=== PATIENT | female | born 1945 | race Caucasian/White ===

== ENCOUNTER 2017-06-15 22:42 | Inpatient (IN) | payer MEDICARE, OTHER ==
[~2017-06-15] VITALS: Ht 157.5 cm; Wt 96.1 kg
[~2017-06-15 22:42] MED LIST: ALBU8.5H8 INH; ATOR10TA87 PO; CARV12.5 PO; FURO-150 PO; HYDR1TAB PO; LISI10TA4 PO; MYC15CR TP; POTA10TA36 PO
[2017-06-15] MEDS ORDERED: ASPI-1265 PO (23:43)
[2017-06-15] MEDS ORDERED: HYDROcodone/acetaminophen 5mg/325mg tablet PO ONE (23:50)
[2017-06-16 00:32] LABS: ALANINE AMINOTRANSFERASE 17 U/L (12-78); ALBUMIN 3.1 G/DL (3.4-5.0); ALBUMIN/GLOBULIN RATIO 0.8 (1.1-1.5); ALKALINE PHOSPHATASE 80 IU/L (46-116); ANION GAP 9 (8-16); ASPARTATE AMINO TRANSFERASE 13 U/L (10-37); BILIRUBIN,TOTAL 0.3 MG/DL (0.1-1.0); BLOOD UREA NITROGEN 19 MG/DL (7-18); BUN/CREATININE RATIO 25.3 (6.6-38.0); CALCIUM 9.4 MG/DL (8.5-10.1); CHLORIDE 107 MMOL/L (99-107); CREATININE 0.75 MG/DL (0.40-0.90); GLUCOSE 93 MG/DL (70-104); SODIUM 142 MMOL/L (135-145); TOTAL CARBON DIOXIDE 26.3 MMOL/L (24-32); eGFR 76 ML/MIN
[2017-06-16 00:40] LABS: MAGNESIUM 2.3 MG/DL (1.5-2.4)
[2017-06-16 00:57] LABS: BASOPHILS % (AUTO) 0.5 % (0-1); EOSINOPHILS # (AUTO) 0.2 X10'3 (0-0.9); EOSINOPHILS % (AUTO) 2.1 % (0-6); HEMATOCRIT 40.8 % (35.0-45.0); HEMOGLOBIN 13.4 g/dl (12.0-16.0); LYMPHOCYTES # (AUTO) 1.9 X10'3 (1.1-4.8); LYMPHOCYTES % (AUTO) 24.2 % (21-51); MEAN CORPUSCULAR VOLUME 87.9 FL (78-98); MEAN PLATELET VOLUME 8.6 FL (7.4-10.4); MONOCYTES # (AUTO) 0.7 X10'3 (0-0.9); NEUTROPHILS # (AUTO) 5.2 X10'3 (1.8-7.7); NEUTROPHILS % (AUTO) 64.2 % (42-75); PLATELET COUNT 218 X10'3 (140-440); RED BLOOD COUNT 4.64 X10'6 (4.20-5.60); RED CELL DISTRIBUTION WIDTH 15.7 % (11.5-14.5)
[2017-06-16] MEDS ORDERED: clindamycin-Cleocin 900mg/D5W 50 ML IV ONE (01:00)
[2017-06-16] MEDS ORDERED: HYDROCODONE PO PRN (03:20)
[2017-06-16] MEDS ORDERED: ACETAMINOPHEN PO PRN (03:20)
[2017-06-16] MEDS: normal saline 1000ml 1,000 ML IV SCH ×2 (03:22→08:39)
[2017-06-16] MEDS ORDERED: diphenhydrAMINE 50 mg/ml inj IV PRN (03:25)
[2017-06-16] MEDS ORDERED: diphenhydrAMINE 25mg capsule PO PRN (03:25)
[2017-06-16] MEDS ORDERED: magnesium hydroxide 30ml (MOM) UD suspension PO PRN (03:25)
[2017-06-16] MEDS ORDERED: HYDROmorphone inj. 0.5 MG/0.5 ML DISP.SYRIN IV PRN ×2 (03:25)
[2017-06-16] MEDS ORDERED: ondansetron/PF 4mg/2ml inj IV PRN (03:25)
[2017-06-16] MEDS ORDERED: acetaminophen 650mg rectal suppository RC PRN (03:25)
[2017-06-16] MEDS ORDERED: acetaminophen 325mg tablet PO PRN ×2 (03:25)
[2017-06-16] MEDS ORDERED: metoclopramide 5 mg/ml inj IV PRN (03:25)
[2017-06-16] MEDS ORDERED: mag hydrox/Alum hydrox/simeth 30ml oral suspension PO PRN (03:25)
[2017-06-16] MEDS ORDERED: HYDROcodone/acetaminophen 10/325mg tab PO PRN (03:25)
[2017-06-16] MEDS ORDERED: HYDROcodone/acetaminophen 5mg/325mg tablet PO PRN (03:25)
[2017-06-16] MEDS ORDERED: albuterol 2.5 MG/3 ML nebule NEB PRN (03:40)
[2017-06-16 03:56] LABS: CLARITY,URINE CLEAR (Clear); COLOR,URINE YELLOW (Yellow); GLUCOSE, URINE NEGATIVE (Neg); KETONES,URINE NEGATIVE (Neg); LEUKOCYTE ESTERASE ,URINE NEGATIVE (Neg); NITRITES, URINE NEGATIVE (Neg); OCCULT BLOOD,URINE NEGATIVE (Neg); PH,URINE 5.5 (4.8-8.0); PROTEIN,URINE NEGATIVE (Neg); UROBILINOGEN,URINE 0.2 E.U/dL (0.2-1.0)
[2017-06-16 03:56] LABS: D-DIMER 1.81 MG/L FEU (0-0.50); INR 0.9 INR; PARTIAL THROMBOPLASTIN TIME 30 SECONDS (22-32); PROTHROMBIN TIME 9.8 SECONDS (9.0-12.0)
[2017-06-16 03:57] LABS: UA COLLECTION TYPE CLN CATCH MIDSTREAM
[2017-06-16 04:02] LABS: C-REACTIVE PROTEIN 1.36 MG/DL (0.0-0.5)
[2017-06-16 08:04] VITALS: BP 163/99
[2017-06-16] MEDS: clindamycin 600mg/D5W 50ml 50 ML IV SCH ×2 (08:38→16:48)
[2017-06-16] MEDS: lisinopril 10 MG tablet PO SCH (08:42)
[2017-06-16] MEDS: furosemide 10 MG/1 ML 10ml inj IV SCH (08:44)
[2017-06-16] MEDS: aspirin 81mg tab.chew PO SCH (08:44)
[2017-06-16] MEDS: atorvastatin 10mg tablet PO SCH (08:44)
[2017-06-16] MEDS: lactobacillus rhamnosus 10,000 MMU CELLS/CAPSULE PO SCH ×2 (08:44→20:04)
[2017-06-16] MEDS: carVEDilol 12.5mg tablet PO SCH ×2 (08:44→20:04)
[2017-06-16] MEDS: docusate sod 100mg capsule PO SCH ×2 (08:45→20:04)
[2017-06-16] MEDS: heparin, porcine 5000 units/ml vial SQ SCH ×2 (08:46→20:05)
[2017-06-16 11:11] VITALS: BP 124/88
[2017-06-16] MEDS ORDERED: HYDR-3964 PO (17:12)
[2017-06-16 19:00] VITALS: BP 126/69
[2017-06-16] MEDS ORDERED: HYDROmorphone 2mg tablet PO PRN (19:15)
[2017-06-16] MEDS: HYDROmorphone 2mg tablet PO PRN (20:02)
[2017-06-16] MEDS: nystatin 15 GM powder TP SCH (20:10)
[2017-06-16] MEDS ORDERED: temazepam 15mg capsule PO PRN (21:00)
[2017-06-17] MEDS: clindamycin 600mg/D5W 50ml 50 ML IV SCH ×3 (00:18→14:51)
[2017-06-17 00:47] VITALS: BP 117/69
[2017-06-17] MEDS: HYDROmorphone 2mg tablet PO PRN ×2 (04:34→21:35)
[2017-06-17 05:24] LABS: BASOPHILS % (AUTO) 0.6 % (0-1); EOSINOPHILS # (AUTO) 0.2 X10'3 (0-0.9); EOSINOPHILS % (AUTO) 3.3 % (0-6); HEMATOCRIT 37.9 % (35.0-45.0); HEMOGLOBIN 12.4 g/dl (12.0-16.0); LYMPHOCYTES # (AUTO) 1.5 X10'3 (1.1-4.8); MEAN CORPUSCULAR HGB CONC 32.8 % (33.0-36.5); MEAN CORPUSCULAR VOLUME 88.4 FL (78-98); MEAN PLATELET VOLUME 9.2 FL (7.4-10.4); MONOCYTES # (AUTO) 0.6 X10'3 (0-0.9); MONOCYTES % (AUTO) 10.3 % (2-12); NEUTROPHILS # (AUTO) 3.4 X10'3 (1.8-7.7); NEUTROPHILS % (AUTO) 59.8 % (42-75); PLATELET COUNT 201 X10'3 (140-440); RED BLOOD COUNT 4.28 X10'6 (4.20-5.60); RED CELL DISTRIBUTION WIDTH 15.4 % (11.5-14.5); WHITE BLOOD COUNT 5.6 X10'3 (4.5-11.0)
[2017-06-17 05:35] LABS: ALANINE AMINOTRANSFERASE 17 U/L (12-78); ALBUMIN 2.5 G/DL (3.4-5.0); ALBUMIN/GLOBULIN RATIO 0.7 (1.1-1.5); ALKALINE PHOSPHATASE 62 IU/L (46-116); ANION GAP 9 (8-16); ASPARTATE AMINO TRANSFERASE 14 U/L (10-37); BILIRUBIN,TOTAL 0.4 MG/DL (0.1-1.0); BLOOD UREA NITROGEN 19 MG/DL (7-18); BUN/CREATININE RATIO 23.8 (6.6-38.0); CALCIUM 8.9 MG/DL (8.5-10.1); CHLORIDE 108 MMOL/L (99-107); GLUCOSE 96 MG/DL (70-104); POTASSIUM 3.6 MMOL/L (3.5-5.1); SODIUM 145 MMOL/L (135-145); TOTAL CARBON DIOXIDE 28.5 MMOL/L (24-32); TOTAL PROTEIN 5.9 G/DL (6.4-8.2); eGFR 70 ML/MIN
[2017-06-17 06:02] LABS: HEMOGLOBIN A1C 5.6 % (4.5-6.2)
[2017-06-17 07:00] VITALS: BP 132/69
[2017-06-17] MEDS: furosemide 10 MG/1 ML 10ml inj IV SCH (08:05)
[2017-06-17] MEDS: carVEDilol 12.5mg tablet PO SCH ×2 (08:06→21:32)
[2017-06-17] MEDS: heparin, porcine 5000 units/ml vial SQ SCH ×2 (08:06→21:31)
[2017-06-17] MEDS: lisinopril 10 MG tablet PO SCH (08:06)
[2017-06-17] MEDS: docusate sod 100mg capsule PO SCH ×2 (08:06→21:32)
[2017-06-17] MEDS: aspirin 81mg tab.chew PO SCH (08:06)
[2017-06-17] MEDS: lactobacillus rhamnosus 10,000 MMU CELLS/CAPSULE PO SCH ×2 (08:06→21:32)
[2017-06-17] MEDS: atorvastatin 10mg tablet PO SCH (08:06)
[2017-06-17] MEDS: nystatin 15 GM powder TP SCH ×2 (08:18→20:00)
[2017-06-17 11:00] VITALS: BP 122/76
[2017-06-17] MEDS ORDERED: guaiFENesin/DM/phenylephrine syrup 120ml bottle PO PRN (12:25)
[2017-06-17] MEDS ORDERED: guaiFENesin 200 MG/10 ML oral syrup UD cup PO PRN (12:35)
[2017-06-17] MEDS: loratadine 10mg tablet PO SCH (14:51)
[2017-06-17 18:00] VITALS: BP 120/81
[2017-06-17 23:33] VITALS: BP 117/60
[2017-06-18] MEDS: clindamycin 600mg/D5W 50ml 50 ML IV SCH ×2 (00:53→09:30)
[2017-06-18] MEDS: HYDROmorphone 2mg tablet PO PRN (03:36)
[2017-06-18] MEDS: normal saline 1000ml 1,000 ML IV SCH (03:36)
[2017-06-18 05:12] LABS: BASOPHILS % (AUTO) 0.3 % (0-1); EOSINOPHILS # (AUTO) 0.3 X10'3 (0-0.9); EOSINOPHILS % (AUTO) 3.5 % (0-6); HEMATOCRIT 41.1 % (35.0-45.0); HEMOGLOBIN 13.7 g/dl (12.0-16.0); LYMPHOCYTES # (AUTO) 1.5 X10'3 (1.1-4.8); LYMPHOCYTES % (AUTO) 19.4 % (21-51); MEAN CORPUSCULAR HEMOGLOBIN 29.6 PG (27.0-31.0); MEAN CORPUSCULAR HGB CONC 33.3 % (33.0-36.5); MEAN CORPUSCULAR VOLUME 88.9 FL (78-98); MEAN PLATELET VOLUME 9.3 FL (7.4-10.4); MONOCYTES # (AUTO) 0.7 X10'3 (0-0.9); MONOCYTES % (AUTO) 8.6 % (2-12); NEUTROPHILS # (AUTO) 5.2 X10'3 (1.8-7.7); NEUTROPHILS % (AUTO) 68.2 % (42-75); PLATELET COUNT 225 X10'3 (140-440); RED BLOOD COUNT 4.62 X10'6 (4.20-5.60); RED CELL DISTRIBUTION WIDTH 15.7 % (11.5-14.5); WHITE BLOOD COUNT 7.7 X10'3 (4.5-11.0)
[2017-06-18 05:41] LABS: ALANINE AMINOTRANSFERASE 15 U/L (12-78); ALBUMIN 2.8 G/DL (3.4-5.0); ALBUMIN/GLOBULIN RATIO 0.7 (1.1-1.5); ALKALINE PHOSPHATASE 72 IU/L (46-116); ANION GAP 7 (8-16); ASPARTATE AMINO TRANSFERASE 19 U/L (10-37); BILIRUBIN,TOTAL 0.3 MG/DL (0.1-1.0); BLOOD UREA NITROGEN 27 MG/DL (7-18); BUN/CREATININE RATIO 29.3 (6.6-38.0); CALCIUM 9.6 MG/DL (8.5-10.1); CHLORIDE 107 MMOL/L (99-107); CREATININE 0.92 MG/DL (0.40-0.90); GLUCOSE 101 MG/DL (70-104); POTASSIUM 3.9 MMOL/L (3.5-5.1); SODIUM 144 MMOL/L (135-145); TOTAL CARBON DIOXIDE 30.2 MMOL/L (24-32); TOTAL PROTEIN 6.7 G/DL (6.4-8.2); eGFR 60 ML/MIN
[2017-06-18 07:19] VITALS: BP 129/81
[2017-06-18] MEDS: nystatin 15 GM powder TP SCH (08:00)
[2017-06-18] MEDS: furosemide 10 MG/1 ML 10ml inj IV SCH (09:30)
[2017-06-18] MEDS: carVEDilol 12.5mg tablet PO SCH (09:31)
[2017-06-18] MEDS: loratadine 10mg tablet PO SCH (09:31)
[2017-06-18] MEDS: docusate sod 100mg capsule PO SCH (09:31)
[2017-06-18] MEDS: aspirin 81mg tab.chew PO SCH (09:31)
[2017-06-18] MEDS: heparin, porcine 5000 units/ml vial SQ SCH (09:32)
[2017-06-18] MEDS: lisinopril 10 MG tablet PO SCH (09:32)
[2017-06-18] MEDS: lactobacillus rhamnosus 10,000 MMU CELLS/CAPSULE PO SCH (09:32)
[2017-06-18] MEDS: atorvastatin 10mg tablet PO SCH (09:32)
[2017-06-18] MEDS ORDERED: LORA10TA65 PO (10:49)
[2017-06-18] MEDS ORDERED: GUAI100L97 PO (10:49)
[2017-06-18] MEDS ORDERED: CLIN-5 PO (10:49)
[2017-06-18 11:00] VITALS: BP 135/82
== END 2017-06-18 12:30 | disposition home or self-care (01) | DRG 603 ==
LOC: ER 22:43 → ED HOLD 06-16 03:22 → SUR 3N 06-16 06:00 → CMPBEDREQ 06-16 06:06
PROVIDERS: ADMIT Family Medicine; ATTEND Internal Medicine
DX: L03.115 Cellulitis of right lower limb (principal); E66.01 Morbid (severe) obesity due to excess calories; I48.91 Unspecified atrial fibrillation; I50.9 Heart failure, unspecified; I11.0 Hypertensive heart disease with heart failure; L03.116 Cellulitis of left lower limb; I25.10 Atherosclerotic heart disease of native coronary artery without angina pectoris; I10 Essential (primary) hypertension; J45.909 Unspecified asthma, uncomplicated; I89.0 Lymphedema, not elsewhere classified; K21.9 Gastro-esophageal reflux disease without esophagitis; K31.9 Disease of stomach and duodenum, unspecified; L02.416 Cutaneous abscess of left lower limb; H26.9 Unspecified cataract; M19.90 Unspecified osteoarthritis, unspecified site; Z88.0 Allergy status to penicillin; Z88.2 Allergy status to sulfonamides; Z85.3 Personal history of malignant neoplasm of breast; I25.2 Old myocardial infarction; Z86.73 Personal history of transient ischemic attack (TIA), and cerebral infarction without residual deficits; Z68.38 Body mass index [BMI] 38.0-38.9, adult; Z87.11 Personal history of peptic ulcer disease; Z88.8 Allergy status to other drugs, medicaments and biological substances; Z91.041 Radiographic dye allergy status; Z90.49 Acquired absence of other specified parts of digestive tract
CPT/HCPCS: 36415; 73590; 80053; 81003; 83036; 83605; 83735; 83880; 84145; 85025; 85379; 85610; 85651; 85730; 86140; 87040; 87070; 99285; J1644; J1940; J3490; J7030; Q0163

== ENCOUNTER 2017-07-24 10:16 | Inpatient (IN) | payer MEDICARE ==
[~2017-07-24] VITALS: Ht 157.5 cm; Wt 118.0 kg
[~2017-07-24 10:16] MED LIST changes: +ASPI-1265 PO; +CLIN-5 PO; +GUAI100L97 PO; +HYDR-3964 PO; -HYDR1TAB PO; +LORA10TA65 PO; -MYC15CR TP
[2017-07-24 11:15] LABS: BASOPHILS # (AUTO) 0.1 X10'3 (0-0.2); BASOPHILS % (AUTO) 0.9 % (0-1); EOSINOPHILS # (AUTO) 0.1 X10'3 (0-0.9); EOSINOPHILS % (AUTO) 1.2 % (0-6); HEMATOCRIT 38.6 % (35.0-45.0); HEMOGLOBIN 13.2 g/dl (12.0-16.0); LYMPHOCYTES # (AUTO) 1.7 X10'3 (1.1-4.8); LYMPHOCYTES % (AUTO) 23.5 % (21-51); MEAN CORPUSCULAR HEMOGLOBIN 29.9 PG (27.0-31.0); MEAN CORPUSCULAR HGB CONC 34.2 % (33.0-36.5); MEAN CORPUSCULAR VOLUME 87.3 FL (78-98); MEAN PLATELET VOLUME 8.5 FL (7.4-10.4); MONOCYTES # (AUTO) 0.6 X10'3 (0-0.9); MONOCYTES % (AUTO) 8.1 % (2-12); NEUTROPHILS # (AUTO) 4.9 X10'3 (1.8-7.7); NEUTROPHILS % (AUTO) 66.3 % (42-75); PLATELET COUNT 255 X10'3 (140-440); RED BLOOD COUNT 4.43 X10'6 (4.20-5.60); RED CELL DISTRIBUTION WIDTH 15.9 % (11.5-14.5); WHITE BLOOD COUNT 7.4 X10'3 (4.5-11.0)
[2017-07-24 11:33] LABS: D-DIMER 2.05 MG/L FEU (0-0.50)
[2017-07-24 11:43] LABS: ALANINE AMINOTRANSFERASE 20 U/L (12-78); ALBUMIN 3.1 G/DL (3.4-5.0); ALBUMIN/GLOBULIN RATIO 0.7 (1.1-1.5); ALKALINE PHOSPHATASE 83 IU/L (46-116); ANION GAP 8 (8-16); ASPARTATE AMINO TRANSFERASE 14 U/L (10-37); BILIRUBIN,TOTAL 0.4 MG/DL (0.1-1.0); BLOOD UREA NITROGEN 15 MG/DL (7-18); CALCIUM 9.3 MG/DL (8.5-10.1); CHLORIDE 107 MMOL/L (99-107); CREATININE 0.79 MG/DL (0.40-0.90); GLUCOSE 94 MG/DL (70-104); POTASSIUM 3.7 MMOL/L (3.5-5.1); SODIUM 143 MMOL/L (135-145); TOTAL CARBON DIOXIDE 27.6 MMOL/L (24-32); TOTAL PROTEIN 7.3 G/DL (6.4-8.2); eGFR 71 ML/MIN
[2017-07-24] MEDS ORDERED: clindamycin-Cleocin 900mg/D5W 50 ML IV ONE (12:00)
[2017-07-24] MEDS ORDERED: magnesium/D5W IVPB 50 ML IV PRN (14:30)
[2017-07-24] MEDS ORDERED: potassium Cl 20 mEq SR tablet PO PRN ×2 (14:30)
[2017-07-24] MEDS ORDERED: magnesium 4gm in 100ml NS 100 ML IV PRN (14:30)
[2017-07-24] MEDS ORDERED: potassium Cl 40MEQ/NS 500ml 500 ML IV PRN ×2 (14:30)
[2017-07-24] MEDS ORDERED: ondansetron/PF 4mg/2ml inj IV PRN (14:30)
[2017-07-24] MEDS ORDERED: magnesium Cl slow-release 64mg tablet PO PRN (14:30)
[2017-07-24] MEDS ORDERED: acetaminophen 325mg tablet PO PRN (14:30)
[2017-07-24] MEDS ORDERED: mag hydrox/Alum hydrox/simeth 30ml oral suspension PO PRN (14:30)
[2017-07-24] MEDS ORDERED: HYDROcodone/acetaminophen 5mg/325mg tablet PO PRN (14:30)
[2017-07-24] MEDS ORDERED: magnesium hydroxide 30ml (MOM) UD suspension PO PRN (14:30)
[2017-07-24] MEDS: HYDROcodone/acetaminophen 10/325mg tab PO PRN (15:20)
[2017-07-24] MEDS: normal saline 1000ml 1,000 ML IV SCH (16:34)
[2017-07-24 16:59] VITALS: BP 152/98
[2017-07-24 19:20] VITALS: BP 126/67
[2017-07-24] MEDS: carVEDilol 12.5mg tablet PO SCH (19:32)
[2017-07-25] VITALS: BP 98/54
[2017-07-25] MEDS: acetaminophen 325mg tablet PO PRN (03:30)
[2017-07-25] MEDS: albuterol 2.5 MG/3 ML nebule NEB PRN ×3 (04:32→20:27)
[2017-07-25 06:12] LABS: BASOPHILS % (AUTO) 0.8 % (0-1); EOSINOPHILS # (AUTO) 0.1 X10'3 (0-0.9); EOSINOPHILS % (AUTO) 2.5 % (0-6); HEMATOCRIT 37.7 % (35.0-45.0); HEMOGLOBIN 12.6 g/dl (12.0-16.0); LYMPHOCYTES # (AUTO) 1.2 X10'3 (1.1-4.8); LYMPHOCYTES % (AUTO) 20.3 % (21-51); MEAN CORPUSCULAR HEMOGLOBIN 29.7 PG (27.0-31.0); MEAN CORPUSCULAR HGB CONC 33.5 % (33.0-36.5); MEAN CORPUSCULAR VOLUME 88.6 FL (78-98); MEAN PLATELET VOLUME 8.9 FL (7.4-10.4); MONOCYTES # (AUTO) 0.5 X10'3 (0-0.9); MONOCYTES % (AUTO) 8.9 % (2-12); NEUTROPHILS # (AUTO) 4.1 X10'3 (1.8-7.7); NEUTROPHILS % (AUTO) 67.5 % (42-75); PLATELET COUNT 221 X10'3 (140-440); RED BLOOD COUNT 4.26 X10'6 (4.20-5.60); RED CELL DISTRIBUTION WIDTH 15.6 % (11.5-14.5); WHITE BLOOD COUNT 6.1 X10'3 (4.5-11.0)
[2017-07-25 06:33] LABS: ALBUMIN 2.7 G/DL (3.4-5.0); ANION GAP 8 (8-16); BLOOD UREA NITROGEN 18 MG/DL (7-18); BUN/CREATININE RATIO 20.5 (6.6-38.0); CALCIUM 9.1 MG/DL (8.5-10.1); CHLORIDE 108 MMOL/L (99-107); CREATININE 0.88 MG/DL (0.40-0.90); GLUCOSE 92 MG/DL (70-104); MAGNESIUM 2.2 MG/DL (1.5-2.4); POTASSIUM 4.1 MMOL/L (3.5-5.1); SODIUM 144 MMOL/L (135-145); TOTAL CARBON DIOXIDE 28.1 MMOL/L (24-32); eGFR 63 ML/MIN
[2017-07-25 07:00] VITALS: BP 120/82
[2017-07-25] MEDS: K and/or MAG REPLACEMENT MC SCH (07:44)
[2017-07-25] MEDS: lisinopril 10 MG tablet PO SCH (07:53)
[2017-07-25] MEDS: atorvastatin 10mg tablet PO SCH (07:53)
[2017-07-25] MEDS: aspirin 81mg tab.chew PO SCH (07:53)
[2017-07-25] MEDS: carVEDilol 12.5mg tablet PO SCH ×2 (07:53→19:11)
[2017-07-25] MEDS: enoxaparin 40mg/0.4ml syringe SUBCUT SCH (07:54)
[2017-07-25 12:15] VITALS: BP 108/77
[2017-07-25] MEDS: cefepime 1GM/NS ADD-VANTAGE 100 ML IV SCH ×2 (13:56→19:11)
[2017-07-25 19:00] VITALS: BP 105/78
[2017-07-25] MEDS: lactobacillus rhamnosus 10,000 MMU CELLS/CAPSULE PO SCH (19:11)
[2017-07-25] MEDS: HYDROcodone/acetaminophen 10/325mg tab PO PRN (20:16)
[2017-07-26] VITALS: BP 105/59
[2017-07-26] MEDS: temazepam 15mg capsule PO PRN (02:19)
[2017-07-26] MEDS ORDERED: VANCOMYCIN LEVEL IV ONE (03:30)
[2017-07-26 03:40] LABS: BASOPHILS % (AUTO) 0.5 % (0-1); EOSINOPHILS # (AUTO) 0.2 X10'3 (0-0.9); HEMATOCRIT 35.5 % (35.0-45.0); HEMOGLOBIN 11.9 g/dl (12.0-16.0); LYMPHOCYTES # (AUTO) 1.4 X10'3 (1.1-4.8); LYMPHOCYTES % (AUTO) 22.3 % (21-51); MEAN CORPUSCULAR HEMOGLOBIN 29.4 PG (27.0-31.0); MEAN CORPUSCULAR HGB CONC 33.4 % (33.0-36.5); MEAN CORPUSCULAR VOLUME 87.9 FL (78-98); MEAN PLATELET VOLUME 8.4 FL (7.4-10.4); MONOCYTES # (AUTO) 0.6 X10'3 (0-0.9); MONOCYTES % (AUTO) 9.2 % (2-12); NEUTROPHILS # (AUTO) 4.1 X10'3 (1.8-7.7); PLATELET COUNT 201 X10'3 (140-440); RED BLOOD COUNT 4.04 X10'6 (4.20-5.60); RED CELL DISTRIBUTION WIDTH 16.2 % (11.5-14.5); WHITE BLOOD COUNT 6.3 X10'3 (4.5-11.0)
[2017-07-26 04:12] LABS: ALBUMIN 2.3 G/DL (3.4-5.0); ANION GAP 7 (8-16); BLOOD UREA NITROGEN 21 MG/DL (7-18); BUN/CREATININE RATIO 23.3 (6.6-38.0); CALCIUM 8.7 MG/DL (8.5-10.1); CHLORIDE 107 MMOL/L (99-107); GLUCOSE 102 MG/DL (70-104); SODIUM 142 MMOL/L (135-145); TOTAL CARBON DIOXIDE 27.6 MMOL/L (24-32); eGFR 61 ML/MIN
[2017-07-26 04:19] LABS: VANCOMYCIN,TROUGH 20.8 UG/ML (6.0-14.0)
[2017-07-26] MEDS: albuterol 2.5 MG/3 ML nebule NEB PRN (06:42)
[2017-07-26] MEDS: cefepime 1GM/NS ADD-VANTAGE 100 ML IV SCH ×2 (07:26→21:04)
[2017-07-26] MEDS: lisinopril 10 MG tablet PO SCH (07:27)
[2017-07-26] MEDS: atorvastatin 10mg tablet PO SCH (07:27)
[2017-07-26] MEDS: aspirin 81mg tab.chew PO SCH (07:27)
[2017-07-26] MEDS: lactobacillus rhamnosus 10,000 MMU CELLS/CAPSULE PO SCH ×2 (07:27→20:48)
[2017-07-26] MEDS: carVEDilol 12.5mg tablet PO SCH ×2 (07:27→20:48)
[2017-07-26] MEDS: enoxaparin 40mg/0.4ml syringe SUBCUT SCH (07:28)
[2017-07-26] MEDS: K and/or MAG REPLACEMENT MC SCH (07:34)
[2017-07-26 07:46] VITALS: BP 104/63
[2017-07-26] MEDS: normal saline 1000ml 1,000 ML IV SCH (14:27)
[2017-07-26 19:00] VITALS: BP 127/70
[2017-07-26] MEDS: HYDROcodone/acetaminophen 10/325mg tab PO PRN (20:51)
[2017-07-26 23:30] VITALS: BP 91/54
[2017-07-27] MEDS: temazepam 15mg capsule PO PRN (01:25)
[2017-07-27] MEDS: acetaminophen 325mg tablet PO PRN (03:26)
[2017-07-27 05:01] LABS: BASOPHILS % (AUTO) 0.3 % (0-1); EOSINOPHILS # (AUTO) 0.2 X10'3 (0-0.9); HEMATOCRIT 37.6 % (35.0-45.0); HEMOGLOBIN 12.5 g/dl (12.0-16.0); LYMPHOCYTES # (AUTO) 1.5 X10'3 (1.1-4.8); LYMPHOCYTES % (AUTO) 21.3 % (21-51); MEAN CORPUSCULAR HEMOGLOBIN 29.4 PG (27.0-31.0); MEAN CORPUSCULAR HGB CONC 33.4 % (33.0-36.5); MEAN CORPUSCULAR VOLUME 88.2 FL (78-98); MONOCYTES # (AUTO) 0.6 X10'3 (0-0.9); MONOCYTES % (AUTO) 8.9 % (2-12); NEUTROPHILS # (AUTO) 4.7 X10'3 (1.8-7.7); NEUTROPHILS % (AUTO) 66.5 % (42-75); PLATELET COUNT 205 X10'3 (140-440); RED BLOOD COUNT 4.26 X10'6 (4.20-5.60); RED CELL DISTRIBUTION WIDTH 16.2 % (11.5-14.5)
[2017-07-27 05:17] LABS: ALBUMIN 2.6 G/DL (3.4-5.0); ANION GAP 5 (8-16); BLOOD UREA NITROGEN 18 MG/DL (7-18); BUN/CREATININE RATIO 21.2 (6.6-38.0); CHLORIDE 108 MMOL/L (99-107); CREATININE 0.85 MG/DL (0.40-0.90); GLUCOSE 108 MG/DL (70-104); MAGNESIUM 2.1 MG/DL (1.5-2.4); POTASSIUM 4.1 MMOL/L (3.5-5.1); SODIUM 142 MMOL/L (135-145); TOTAL CARBON DIOXIDE 29.3 MMOL/L (24-32); eGFR 65 ML/MIN
[2017-07-27 07:33] VITALS: BP 118/77
[2017-07-27] MEDS: K and/or MAG REPLACEMENT MC SCH (08:00)
[2017-07-27] MEDS: lisinopril 10 MG tablet PO SCH (08:10)
[2017-07-27] MEDS: atorvastatin 10mg tablet PO SCH (08:10)
[2017-07-27] MEDS: lactobacillus rhamnosus 10,000 MMU CELLS/CAPSULE PO SCH (08:10)
[2017-07-27] MEDS: cefepime 1GM/NS ADD-VANTAGE 100 ML IV SCH (08:10)
[2017-07-27] MEDS: carVEDilol 12.5mg tablet PO SCH (08:10)
[2017-07-27] MEDS: aspirin 81mg tab.chew PO SCH (08:10)
[2017-07-27] MEDS: enoxaparin 40mg/0.4ml syringe SUBCUT SCH (08:11)
[2017-07-27] MEDS: normal saline 1000ml 1,000 ML IV SCH (08:11)
[2017-07-27 11:52] VITALS: BP 117/75
[2017-07-27] MEDS ORDERED: LACT1CAP26 PO (15:04)
[2017-07-27] MEDS ORDERED: CEFD300C3 PO (15:04)
== END 2017-07-27 19:10 | disposition home health service (06) | DRG 603 ==
LOC: ER 10:17 → ED HOLD 14:27 → EDBEDREQ 15:22 → SUR 3N 16:15
PROVIDERS: ADMIT Internal Medicine; ATTEND Family Medicine
DX: L03.116 Cellulitis of left lower limb (principal); Z68.42 Body mass index [BMI] 45.0-49.9, adult; E66.01 Morbid (severe) obesity due to excess calories; I50.9 Heart failure, unspecified; I11.0 Hypertensive heart disease with heart failure; I25.10 Atherosclerotic heart disease of native coronary artery without angina pectoris; J44.9 Chronic obstructive pulmonary disease, unspecified; E78.5 Hyperlipidemia, unspecified; I48.91 Unspecified atrial fibrillation; M19.90 Unspecified osteoarthritis, unspecified site; K21.9 Gastro-esophageal reflux disease without esophagitis; Z90.49 Acquired absence of other specified parts of digestive tract; I25.2 Old myocardial infarction; Z88.1 Allergy status to other antibiotic agents; Z91.041 Radiographic dye allergy status; Z88.0 Allergy status to penicillin; Z88.2 Allergy status to sulfonamides; Z91.018 Allergy to other foods; Z79.899 Other long term (current) drug therapy; Z79.82 Long term (current) use of aspirin; Z85.3 Personal history of malignant neoplasm of breast; Z87.11 Personal history of peptic ulcer disease; Z86.718 Personal history of other venous thrombosis and embolism; Z86.73 Personal history of transient ischemic attack (TIA), and cerebral infarction without residual deficits
CPT/HCPCS: 36415; 71045; 80048; 80053; 80202; 83605; 83735; 83880; 84145; 85025; 85379; 87040; 87070; 93005; 93970; 94640; 94760; 96365; 99285; A6258; J0692; J1650; J3370; J3490; J7030

== ENCOUNTER 2017-09-07 12:08 | Emergency (ER) | payer MEDICARE ==
[~2017-09-07] VITALS: Ht 157.5 cm; Wt 99.6 kg
[~2017-09-07 12:08] MED LIST changes: -CLIN-5 PO; +LACT1CAP26 PO
[2017-09-07 13:11] LABS: BASOPHILS % (AUTO) 0.6 % (0-1); EOSINOPHILS # (AUTO) 0.2 X10'3 (0-0.9); EOSINOPHILS % (AUTO) 2.5 % (0-6); HEMATOCRIT 41.3 % (35.0-45.0); HEMOGLOBIN 13.8 g/dl (12.0-16.0); LYMPHOCYTES # (AUTO) 1.4 X10'3 (1.1-4.8); LYMPHOCYTES % (AUTO) 19.1 % (21-51); MEAN CORPUSCULAR HEMOGLOBIN 29.5 PG (27.0-31.0); MEAN CORPUSCULAR HGB CONC 33.3 % (33.0-36.5); MEAN CORPUSCULAR VOLUME 88.5 FL (78-98); MEAN PLATELET VOLUME 8.8 FL (7.4-10.4); MONOCYTES # (AUTO) 0.6 X10'3 (0-0.9); MONOCYTES % (AUTO) 8.6 % (2-12); NEUTROPHILS # (AUTO) 5.2 X10'3 (1.8-7.7); NEUTROPHILS % (AUTO) 69.2 % (42-75); PLATELET COUNT 223 X10'3 (140-440); RED BLOOD COUNT 4.67 X10'6 (4.20-5.60); RED CELL DISTRIBUTION WIDTH 15.6 % (11.5-14.5); WHITE BLOOD COUNT 7.5 X10'3 (4.5-11.0)
[2017-09-07 13:21] LABS: INR 0.9 INR; PARTIAL THROMBOPLASTIN TIME 30 SECONDS (22-32); PROTHROMBIN TIME 9.7 SECONDS (9.0-12.0)
[2017-09-07 13:27] LABS: ALANINE AMINOTRANSFERASE 18 U/L (12-78); ALBUMIN/GLOBULIN RATIO 0.7 (1.1-1.5); ALKALINE PHOSPHATASE 78 IU/L (46-116); ANION GAP 7 (8-16); ASPARTATE AMINO TRANSFERASE 13 U/L (10-37); BILIRUBIN,TOTAL 0.4 MG/DL (0.1-1.0); BLOOD UREA NITROGEN 14 MG/DL (7-18); BUN/CREATININE RATIO 17.1 (6.6-38.0); CALCIUM 9.4 MG/DL (8.5-10.1); CHLORIDE 107 MMOL/L (99-107); CREATININE 0.82 MG/DL (0.40-0.90); GLUCOSE 89 MG/DL (70-104); POTASSIUM 4.1 MMOL/L (3.5-5.1); SODIUM 143 MMOL/L (135-145); TOTAL CARBON DIOXIDE 28.8 MMOL/L (24-32); TOTAL PROTEIN 7.6 G/DL (6.4-8.2); eGFR 68 ML/MIN
[2017-09-07 13:33] LABS: MAGNESIUM 2.2 MG/DL (1.5-2.4)
[2017-09-07] MEDS ORDERED: furosemide 10 MG/1 ML 10ml inj IV ONE (14:20)
[2017-09-07] MEDS ORDERED: CLIN150C8 PO (14:23)
[2017-09-07 14:31] VITALS: BP 140/80
== END 2017-09-07 14:44 | disposition home or self-care (01) ==
LOC: ER 12:09
DX: L03.116 Cellulitis of left lower limb (principal); L03.115 Cellulitis of right lower limb; I48.91 Unspecified atrial fibrillation; R06.02 Shortness of breath; I11.0 Hypertensive heart disease with heart failure; I50.9 Heart failure, unspecified; J45.909 Unspecified asthma, uncomplicated; K21.9 Gastro-esophageal reflux disease without esophagitis; M19.90 Unspecified osteoarthritis, unspecified site; Z85.3 Personal history of malignant neoplasm of breast; Z86.718 Personal history of other venous thrombosis and embolism; Z98.890 Other specified postprocedural states; Z90.89 Acquired absence of other organs; Z86.73 Personal history of transient ischemic attack (TIA), and cerebral infarction without residual deficits; Z88.2 Allergy status to sulfonamides; Z88.0 Allergy status to penicillin; Z88.5 Allergy status to narcotic agent; Z91.018 Allergy to other foods; Z79.82 Long term (current) use of aspirin; Z79.899 Other long term (current) drug therapy
CPT/HCPCS: 36415; 71045; 80053; 83605; 83735; 83880; 84484; 85025; 85610; 85730; 87040; 93005; 96374; 99285; J1940

== ENCOUNTER 2017-09-12 10:35 | Inpatient (IN) | payer MEDICARE, OTHER ==
[~2017-09-12] VITALS: Ht 157.5 cm; Wt 120.9 kg
[~2017-09-12 10:35] MED LIST changes: +CLIN150C8 PO
[2017-09-12] MEDS ORDERED: gentamicin inj 400 MG in normal saline 100ml IV soln 100 ML IV STA (11:14)
[2017-09-12] MEDS ORDERED: vancomycin/NS 1 GM ADD-VANTAGE 250 ML IV ONE (11:15)
[2017-09-12 11:31] LABS: BASOPHILS % (AUTO) 0.4 % (0-1); EOSINOPHILS # (AUTO) 0.2 X10'3 (0-0.9); EOSINOPHILS % (AUTO) 2.8 % (0-6); HEMATOCRIT 42.6 % (35.0-45.0); HEMOGLOBIN 14.1 g/dl (12.0-16.0); LYMPHOCYTES # (AUTO) 1.5 X10'3 (1.1-4.8); LYMPHOCYTES % (AUTO) 19.3 % (21-51); MEAN CORPUSCULAR HEMOGLOBIN 29.3 PG (27.0-31.0); MEAN CORPUSCULAR VOLUME 88.7 FL (78-98); MEAN PLATELET VOLUME 8.8 FL (7.4-10.4); MONOCYTES # (AUTO) 0.5 X10'3 (0-0.9); MONOCYTES % (AUTO) 6.8 % (2-12); NEUTROPHILS # (AUTO) 5.7 X10'3 (1.8-7.7); NEUTROPHILS % (AUTO) 70.7 % (42-75); PLATELET COUNT 227 X10'3 (140-440); RED CELL DISTRIBUTION WIDTH 15.9 % (11.5-14.5)
[2017-09-12 11:41] LABS: PARTIAL THROMBOPLASTIN TIME 30 SECONDS (22-32)
[2017-09-12 11:46] LABS: ALANINE AMINOTRANSFERASE 17 U/L (12-78); ALBUMIN 2.9 G/DL (3.4-5.0); ALBUMIN/GLOBULIN RATIO 0.7 (1.1-1.5); ALKALINE PHOSPHATASE 79 IU/L (46-116); ANION GAP 5 (8-16); ASPARTATE AMINO TRANSFERASE 14 U/L (10-37); BILIRUBIN,TOTAL 0.4 MG/DL (0.1-1.0); BLOOD UREA NITROGEN 10 MG/DL (7-18); BUN/CREATININE RATIO 12.5 (6.6-38.0); CHLORIDE 108 MMOL/L (99-107); GLUCOSE 94 MG/DL (70-104); MAGNESIUM 2.2 MG/DL (1.5-2.4); SODIUM 142 MMOL/L (135-145); TOTAL CARBON DIOXIDE 29.3 MMOL/L (24-32); eGFR 70 ML/MIN
[2017-09-12] MEDS ORDERED: magnesium Cl slow-release 64mg tablet PO PRN (12:15)
[2017-09-12] MEDS ORDERED: magnesium 1gm/100ml D5W IVPB 100 ML IV PRN (12:15)
[2017-09-12] MEDS ORDERED: mag hydrox/Alum hydrox/simeth 30ml oral suspension PO PRN (12:15)
[2017-09-12] MEDS ORDERED: potassium Cl 20 mEq SR tablet PO PRN (12:15)
[2017-09-12] MEDS ORDERED: potassium Cl 40MEQ/NS 500ml 500 ML IV PRN ×2 (12:15)
[2017-09-12] MEDS ORDERED: HYDROcodone/acetaminophen 5mg/325mg tablet PO PRN ×2 (12:15→17:35)
[2017-09-12] MEDS ORDERED: magnesium 4gm in 100ml NS 100 ML IV PRN (12:15)
[2017-09-12] MEDS ORDERED: ondansetron/PF 4mg/2ml inj IV PRN (12:15)
[2017-09-12] MEDS ORDERED: enoxaparin 60mg/0.6ml syringe SUBCUT ONE (12:37)
[2017-09-12] MEDS ORDERED: enoxaparin 100mg/ml syringe SUBCUT ONE (12:45)
[2017-09-12 13:08] LABS: GLUCOSE, URINE Negative (Neg); KETONES,URINE Negative (Neg); LEUKOCYTE ESTERASE ,URINE Moderate (Neg); NITRITES, URINE Negative (Neg); OCCULT BLOOD,URINE Negative (Neg); PH,URINE 6.5 (4.8-8.0); PROTEIN,URINE Negative (Neg)
[2017-09-12 13:09] LABS: CLARITY,URINE SLIGHTLY CLOUDY (Clear); COLOR,URINE STRAW (Yellow); UA COLLECTION TYPE URINAL
[2017-09-12 13:14] LABS: BACTERIA,URINE 2+ /HPF (Neg); MUCUS STRANDS NONE SEEN /LPF (Neg); RBC,URINE NONE SEEN /HPF (0-2); SQUAMOUS EPITHELIAL CELL,UR MODERATE /LPF (FEW); WBC CLUMPS,URINE MODERATE /HPF (NEGATIVE); WBC,URINE 30-50 /HPF (0-4)
[2017-09-12] MEDS ORDERED: diphenhydrAMINE 50 mg/ml inj IV ONE (14:35)
[2017-09-12 17:00] VITALS: BP 134/76
[2017-09-12] MEDS: HYDROcodone/acetaminophen 10/325mg tab PO PRN (17:15)
[2017-09-12] MEDS: ceFAZolin 1GM/D5W- ADD-VANTAGE 50 ML IV SCH (17:15)
[2017-09-12] MEDS ORDERED: non-formulary drug (Albuterol Sulfate (Proair Hfa) 2 PUFFS) INH SCH (17:35)
[2017-09-12] MEDS ORDERED: albuterol 2.5 MG/3 ML nebule NEB PRN (17:45)
[2017-09-12] MEDS: lactobacillus rhamnosus 10,000 MMU CELLS/CAPSULE PO SCH (20:41)
[2017-09-12] MEDS: carVEDilol 12.5mg tablet PO SCH (20:41)
[2017-09-12] MEDS ORDERED: diphenhydrAMINE 25mg capsule PO PRN (20:55)
[2017-09-12 23:00] VITALS: BP 107/63
[2017-09-13] MEDS: ceFAZolin 1GM/D5W- ADD-VANTAGE 50 ML IV SCH ×2 (00:31→08:49)
[2017-09-13 05:00] VITALS: BP 109/65
[2017-09-13 06:20] LABS: BASOPHILS % (AUTO) 0.6 % (0-1); EOSINOPHILS # (AUTO) 0.2 X10'3 (0-0.9); EOSINOPHILS % (AUTO) 3.7 % (0-6); HEMATOCRIT 36.9 % (35.0-45.0); HEMOGLOBIN 12.2 g/dl (12.0-16.0); LYMPHOCYTES # (AUTO) 1.2 X10'3 (1.1-4.8); LYMPHOCYTES % (AUTO) 21.3 % (21-51); MEAN CORPUSCULAR HEMOGLOBIN 29.4 PG (27.0-31.0); MEAN CORPUSCULAR HGB CONC 33.2 % (33.0-36.5); MEAN CORPUSCULAR VOLUME 88.6 FL (78-98); MEAN PLATELET VOLUME 8.9 FL (7.4-10.4); MONOCYTES # (AUTO) 0.6 X10'3 (0-0.9); MONOCYTES % (AUTO) 9.7 % (2-12); NEUTROPHILS # (AUTO) 3.7 X10'3 (1.8-7.7); NEUTROPHILS % (AUTO) 64.7 % (42-75); PLATELET COUNT 195 X10'3 (140-440); RED BLOOD COUNT 4.17 X10'6 (4.20-5.60); RED CELL DISTRIBUTION WIDTH 15.9 % (11.5-14.5); WHITE BLOOD COUNT 5.8 X10'3 (4.5-11.0)
[2017-09-13 06:35] LABS: ALBUMIN 2.4 G/DL (3.4-5.0); ANION GAP 7 (8-16); BLOOD UREA NITROGEN 15 MG/DL (7-18); BUN/CREATININE RATIO 17.9 (6.6-38.0); CALCIUM 8.5 MG/DL (8.5-10.1); CHLORIDE 109 MMOL/L (99-107); CREATININE 0.84 MG/DL (0.40-0.90); GLUCOSE 89 MG/DL (70-104); MAGNESIUM 2.1 MG/DL (1.5-2.4); POTASSIUM 4.1 MMOL/L (3.5-5.1); SODIUM 142 MMOL/L (135-145); TOTAL CARBON DIOXIDE 26.4 MMOL/L (24-32); eGFR 66 ML/MIN
[2017-09-13] MEDS ORDERED: potassium chloride 10mEq ER tablet PO SCH (08:00)
[2017-09-13] MEDS ORDERED: lisinopril 10 MG tablet PO SCH (08:00)
[2017-09-13] MEDS ORDERED: POTASSIUM CHLORIDE 10 MEQ PO SCH (08:00)
[2017-09-13] MEDS ORDERED: furosemide 40mg tablet PO SCH (08:00)
[2017-09-13] MEDS: K and/or MAG REPLACEMENT MC SCH (08:00)
[2017-09-13] MEDS: lactobacillus rhamnosus 10,000 MMU CELLS/CAPSULE PO SCH ×2 (08:48→21:17)
[2017-09-13] MEDS: aspirin 81mg tab.chew PO SCH (08:48)
[2017-09-13] MEDS: carVEDilol 12.5mg tablet PO SCH ×2 (08:49→21:16)
[2017-09-13] MEDS: atorvastatin 10mg tablet PO SCH (08:49)
[2017-09-13 11:10] VITALS: BP 114/60
[2017-09-13] MEDS ORDERED: heparin 10,000 units/1 ML INJ IV PRN (11:15)
[2017-09-13] MEDS ORDERED: heparin 10,000 units/1 ML INJ IV ONE (11:15)
[2017-09-13 11:55] LABS: PARTIAL THROMBOPLASTIN TIME 31 SECONDS (22-32)
[2017-09-13] MEDS ORDERED: doxycycline inj 100 MG in normal saline 100ml IV soln 100 ML IV SCH ×2 (12:50→17:33)
[2017-09-13 18:00] VITALS: BP 117/72
[2017-09-13] MEDS: furosemide 20 MG/2 ML vial IV SCH ×2 (18:02→23:38)
[2017-09-13] MEDS: acetaminophen 325mg tablet PO PRN (18:04)
[2017-09-13] MEDS: doxycycline inj 100 MG in normal saline 100ml IV soln 100 ML IV SCH (18:04)
[2017-09-13 22:00] VITALS: BP 107/61
[2017-09-14] MEDS: acetaminophen 325mg tablet PO PRN ×2 (00:42→14:35)
[2017-09-14] MEDS: doxycycline inj 100 MG in normal saline 100ml IV soln 100 ML IV SCH (04:18)
[2017-09-14 06:02] LABS: ALBUMIN 2.5 G/DL (3.4-5.0); ANION GAP 7 (8-16); BLOOD UREA NITROGEN 15 MG/DL (7-18); BUN/CREATININE RATIO 16.3 (6.6-38.0); CALCIUM 8.7 MG/DL (8.5-10.1); CHLORIDE 105 MMOL/L (99-107); CREATININE 0.92 MG/DL (0.40-0.90); GLUCOSE 120 MG/DL (70-104); MAGNESIUM 1.8 MG/DL (1.5-2.4); POTASSIUM 3.2 MMOL/L (3.5-5.1); SODIUM 141 MMOL/L (135-145); TOTAL CARBON DIOXIDE 28.6 MMOL/L (24-32); eGFR 60 ML/MIN
[2017-09-14 06:03] LABS: BASOPHILS % (AUTO) 0.3 % (0-1); EOSINOPHILS # (AUTO) 0.4 X10'3 (0-0.9); EOSINOPHILS % (AUTO) 6.2 % (0-6); HEMATOCRIT 37.7 % (35.0-45.0); HEMOGLOBIN 12.5 g/dl (12.0-16.0); LYMPHOCYTES # (AUTO) 1.6 X10'3 (1.1-4.8); LYMPHOCYTES % (AUTO) 22.8 % (21-51); MEAN CORPUSCULAR HEMOGLOBIN 29.3 PG (27.0-31.0); MEAN CORPUSCULAR HGB CONC 33.1 % (33.0-36.5); MEAN CORPUSCULAR VOLUME 88.4 FL (78-98); MEAN PLATELET VOLUME 9.4 FL (7.4-10.4); MONOCYTES # (AUTO) 0.6 X10'3 (0-0.9); MONOCYTES % (AUTO) 7.9 % (2-12); NEUTROPHILS # (AUTO) 4.4 X10'3 (1.8-7.7); NEUTROPHILS % (AUTO) 62.8 % (42-75); PLATELET COUNT 204 X10'3 (140-440); RED BLOOD COUNT 4.26 X10'6 (4.20-5.60); RED CELL DISTRIBUTION WIDTH 15.6 % (11.5-14.5)
[2017-09-14 08:00] VITALS: BP 134/70
[2017-09-14] MEDS: aspirin 81mg tab.chew PO SCH ×2 (08:00→08:01)
[2017-09-14] MEDS: K and/or MAG REPLACEMENT MC SCH (08:00)
[2017-09-14] MEDS: lactobacillus rhamnosus 10,000 MMU CELLS/CAPSULE PO SCH ×2 (08:01→23:01)
[2017-09-14] MEDS: atorvastatin 10mg tablet PO SCH (08:02)
[2017-09-14] MEDS: potassium Cl 20 mEq SR tablet PO PRN ×3 (08:02→15:37)
[2017-09-14] MEDS: pantoprazole 40mg Tablet.DR PO SCH (08:02)
[2017-09-14] MEDS: carVEDilol 12.5mg tablet PO SCH (08:03)
[2017-09-14] MEDS: furosemide 20 MG/2 ML vial IV SCH ×3 (08:03→23:01)
[2017-09-14 11:32] VITALS: BP 92/53
[2017-09-14] MEDS: dabigatran 150mg capsule PO SCH ×2 (15:36→23:01)
[2017-09-14] MEDS: DOXYCYCLINE 100MG CAPSULE PO SCH (16:42)
[2017-09-14 18:00] VITALS: BP 93/61
[2017-09-14] MEDS: potassium Cl 20 mEq SR tablet PO SCH (19:53)
[2017-09-14] MEDS: carVEDilol 3.125mg tablet PO SCH (19:58)
[2017-09-14] MEDS: HYDROcodone/acetaminophen 10/325mg tab PO PRN (19:59)
[2017-09-14 20:00] VITALS: BP 126/86
[2017-09-14 22:00] VITALS: BP 113/66
[2017-09-15] MEDS: acetaminophen 325mg tablet PO PRN ×2 (01:39→12:56)
[2017-09-15 05:37] LABS: BASOPHILS % (AUTO) 0.4 % (0-1); EOSINOPHILS # (AUTO) 0.4 X10'3 (0-0.9); HEMATOCRIT 38.1 % (35.0-45.0); HEMOGLOBIN 12.9 g/dl (12.0-16.0); LYMPHOCYTES # (AUTO) 1.6 X10'3 (1.1-4.8); LYMPHOCYTES % (AUTO) 24.1 % (21-51); MEAN CORPUSCULAR HEMOGLOBIN 29.6 PG (27.0-31.0); MEAN CORPUSCULAR HGB CONC 33.9 % (33.0-36.5); MEAN CORPUSCULAR VOLUME 87.5 FL (78-98); MEAN PLATELET VOLUME 8.9 FL (7.4-10.4); MONOCYTES # (AUTO) 0.7 X10'3 (0-0.9); MONOCYTES % (AUTO) 10.7 % (2-12); NEUTROPHILS # (AUTO) 3.9 X10'3 (1.8-7.7); NEUTROPHILS % (AUTO) 58.8 % (42-75); PLATELET COUNT 216 X10'3 (140-440); RED BLOOD COUNT 4.35 X10'6 (4.20-5.60); RED CELL DISTRIBUTION WIDTH 15.5 % (11.5-14.5); WHITE BLOOD COUNT 6.6 X10'3 (4.5-11.0)
[2017-09-15 06:00] VITALS: BP 149/75
[2017-09-15 06:06] LABS: ALBUMIN 2.6 G/DL (3.4-5.0); ANION GAP 6 (8-16); BLOOD UREA NITROGEN 18 MG/DL (7-18); BUN/CREATININE RATIO 20.2 (6.6-38.0); CALCIUM 9.6 MG/DL (8.5-10.1); CHLORIDE 104 MMOL/L (99-107); CREATININE 0.89 MG/DL (0.40-0.90); GLUCOSE 92 MG/DL (70-104); MAGNESIUM 2.2 MG/DL (1.5-2.4); POTASSIUM 4.2 MMOL/L (3.5-5.1); SODIUM 140 MMOL/L (135-145); TOTAL CARBON DIOXIDE 29.6 MMOL/L (24-32); eGFR 62 ML/MIN
[2017-09-15] MEDS: K and/or MAG REPLACEMENT MC SCH (07:14)
[2017-09-15] MEDS: DOXYCYCLINE 100MG CAPSULE PO SCH (07:19)
[2017-09-15] MEDS: dabigatran 150mg capsule PO SCH (07:19)
[2017-09-15] MEDS: potassium Cl 20 mEq SR tablet PO SCH (07:20)
[2017-09-15] MEDS: lactobacillus rhamnosus 10,000 MMU CELLS/CAPSULE PO SCH (07:20)
[2017-09-15] MEDS: atorvastatin 10mg tablet PO SCH (07:20)
[2017-09-15] MEDS: aspirin 81mg tab.chew PO SCH (07:21)
[2017-09-15] MEDS: carVEDilol 3.125mg tablet PO SCH (07:21)
[2017-09-15] MEDS: pantoprazole 40mg Tablet.DR PO SCH (07:22)
[2017-09-15] MEDS: furosemide 20 MG/2 ML vial IV SCH ×2 (07:22→16:12)
[2017-09-15 10:00] VITALS: BP 109/73
[2017-09-15] MEDS: HYDROcodone/acetaminophen 10/325mg tab PO PRN (15:05)
[2017-09-15 16:11] VITALS: BP 143/83
== END 2017-09-15 16:45 | DRG 299 ==
LOC: ER 10:35 → ED HOLD 12:12 → ORTHO 4S 16:38
PROVIDERS: ADMIT Internal Medicine; ATTEND Internal Medicine
PROC: CB221ZZ Tomographic (Tomo) Nuclear Medicine Imaging of Lungs and Bronchi using Technetium 99m (Tc-99m) (ICD-10-PCS; principal; 2017-09-12)
DX: I82.411 Acute embolism and thrombosis of right femoral vein (principal); I50.33 Acute on chronic diastolic (congestive) heart failure; L03.115 Cellulitis of right lower limb; Z68.42 Body mass index [BMI] 45.0-49.9, adult; L03.116 Cellulitis of left lower limb; N39.0 Urinary tract infection, site not specified; I82.431 Acute embolism and thrombosis of right popliteal vein; I82.441 Acute embolism and thrombosis of right tibial vein; Z96.651 Presence of right artificial knee joint; E78.5 Hyperlipidemia, unspecified; M19.90 Unspecified osteoarthritis, unspecified site; I11.0 Hypertensive heart disease with heart failure; I48.91 Unspecified atrial fibrillation; E66.9 Obesity, unspecified; J45.909 Unspecified asthma, uncomplicated; K21.9 Gastro-esophageal reflux disease without esophagitis; Z90.11 Acquired absence of right breast and nipple; Z90.710 Acquired absence of both cervix and uterus; Z88.1 Allergy status to other antibiotic agents; Z91.041 Radiographic dye allergy status; Z88.5 Allergy status to narcotic agent; Z88.0 Allergy status to penicillin; Z88.2 Allergy status to sulfonamides; Z91.018 Allergy to other foods; Z79.899 Other long term (current) drug therapy; Z79.82 Long term (current) use of aspirin; Z86.73 Personal history of transient ischemic attack (TIA), and cerebral infarction without residual deficits; Z87.11 Personal history of peptic ulcer disease; Z85.3 Personal history of malignant neoplasm of breast; Z86.718 Personal history of other venous thrombosis and embolism
CPT/HCPCS: 36415; 70450; 70544; 71045; 78582; 80048; 80053; 81001; 83735; 84145; 85025; 85610; 85730; 87070; 87088; 93306; 93970; 96365; 97110; 97116; 97162; 97530; 99285; A6449; A9539; A9540; J0690; J1200; J1580; J1644; J1650; J1940; J3370; J3490; J7030; Q0163

== ENCOUNTER 2018-02-12 09:24 | Emergency (ER) | payer MEDICARE, OTHER ==
[~2018-02-12] VITALS: Ht 157.5 cm; Wt 111.5 kg
[2018-02-12] MEDS ORDERED: normal saline 1000ml 1,000 ML IV ONE (10:10)
[2018-02-12 10:26] LABS: BASOPHILS # (AUTO) 0.1 X10'3 (0-0.2); BASOPHILS % (AUTO) 1.2 % (0-1); EOSINOPHILS # (AUTO) 0.2 X10'3 (0-0.9); EOSINOPHILS % (AUTO) 1.9 % (0-6); HEMATOCRIT 44.9 % (35.0-45.0); HEMOGLOBIN 14.6 g/dl (12.0-16.0); LYMPHOCYTES # (AUTO) 1.4 X10'3 (1.1-4.8); LYMPHOCYTES % (AUTO) 12.8 % (21-51); MEAN CORPUSCULAR HEMOGLOBIN 28.2 PG (27.0-31.0); MEAN CORPUSCULAR HGB CONC 32.4 % (33.0-36.5); MEAN CORPUSCULAR VOLUME 87.1 FL (78-98); MEAN PLATELET VOLUME 9.6 FL (7.4-10.4); MONOCYTES # (AUTO) 0.8 X10'3 (0-0.9); NEUTROPHILS # (AUTO) 8.6 X10'3 (1.8-7.7); NEUTROPHILS % (AUTO) 77.1 % (42-75); PLATELET COUNT 246 X10'3 (140-440); RED BLOOD COUNT 5.16 X10'6 (4.20-5.60); RED CELL DISTRIBUTION WIDTH 16.9 % (11.5-14.5); WHITE BLOOD COUNT 11.2 X10'3 (4.5-11.0)
[2018-02-12 11:04] VITALS: BP 141/86
[2018-02-12] MEDS ORDERED: ipratropium/albuterol 3ml nebule NEB ONE (11:25)
[2018-02-12 12:27] LABS: ALANINE AMINOTRANSFERASE 18 U/L (12-78); ALBUMIN 2.8 G/DL (3.4-5.0); ALBUMIN/GLOBULIN RATIO 0.7 (1.1-1.5); ALKALINE PHOSPHATASE 79 IU/L (46-116); ANION GAP 12 (8-16); ASPARTATE AMINO TRANSFERASE 11 U/L (10-37); BILIRUBIN,TOTAL 0.4 MG/DL (0.1-1.0); BLOOD UREA NITROGEN 11 MG/DL (7-18); BUN/CREATININE RATIO 17.2 (6.6-38.0); CALCIUM 8.9 MG/DL (8.5-10.1); CHLORIDE 107 MMOL/L (99-107); CREATININE 0.64 MG/DL (0.40-0.90); GLUCOSE 99 MG/DL (70-104); POTASSIUM 3.6 MMOL/L (3.5-5.1); SODIUM 143 MMOL/L (135-145); TOTAL CARBON DIOXIDE 23.9 MMOL/L (24-32); TOTAL PROTEIN 6.8 G/DL (6.4-8.2); eGFR > 90 ML/MIN
[2018-02-12] MEDS ORDERED: AZIT250T PO (12:28)
== END 2018-02-12 12:59 | disposition home or self-care (01) ==
LOC: ER 09:24
DX: J20.9 Acute bronchitis, unspecified (principal); I48.91 Unspecified atrial fibrillation; I50.9 Heart failure, unspecified; I11.0 Hypertensive heart disease with heart failure; J45.909 Unspecified asthma, uncomplicated; K21.9 Gastro-esophageal reflux disease without esophagitis; M19.90 Unspecified osteoarthritis, unspecified site; Z86.73 Personal history of transient ischemic attack (TIA), and cerebral infarction without residual deficits; Z86.718 Personal history of other venous thrombosis and embolism; Z85.3 Personal history of malignant neoplasm of breast; Z98.890 Other specified postprocedural states; Z88.0 Allergy status to penicillin; Z88.2 Allergy status to sulfonamides; Z88.5 Allergy status to narcotic agent; Z88.8 Allergy status to other drugs, medicaments and biological substances; Z91.041 Radiographic dye allergy status; Z91.018 Allergy to other foods; Z79.899 Other long term (current) drug therapy
CPT/HCPCS: 36415; 71045; 80053; 85025; 93005; 94640; 94760; 99284; J7030

== ENCOUNTER 2018-02-15 10:41 | Emergency (ER) | payer MEDICARE, OTHER ==
[~2018-02-15] VITALS: Ht 157.5 cm; Wt 110.0 kg
[~2018-02-15 10:41] MED LIST changes: +AZIT250T PO
[2018-02-15] MEDS ORDERED: dexamethasone sod phosphate 10mg/ml inj PO STA (11:02)
[2018-02-15] MEDS ORDERED: ipratropium/albuterol 3ml nebule NEB ONE (11:05)
[2018-02-15 11:32] LABS: BASOPHILS % (AUTO) 0.4 % (0-1); EOSINOPHILS # (AUTO) 0.3 X10'3 (0-0.9); HEMATOCRIT 43.8 % (35.0-45.0); HEMOGLOBIN 14.1 g/dl (12.0-16.0); LYMPHOCYTES # (AUTO) 1.4 X10'3 (1.1-4.8); LYMPHOCYTES % (AUTO) 20.5 % (21-51); MEAN CORPUSCULAR HEMOGLOBIN 28.3 PG (27.0-31.0); MEAN CORPUSCULAR HGB CONC 32.3 % (33.0-36.5); MEAN CORPUSCULAR VOLUME 87.7 FL (78-98); MEAN PLATELET VOLUME 8.7 FL (7.4-10.4); MONOCYTES # (AUTO) 0.8 X10'3 (0-0.9); MONOCYTES % (AUTO) 10.9 % (2-12); NEUTROPHILS # (AUTO) 4.5 X10'3 (1.8-7.7); NEUTROPHILS % (AUTO) 64.2 % (42-75); PLATELET COUNT 282 X10'3 (140-440); RED CELL DISTRIBUTION WIDTH 16.7 % (11.5-14.5); WHITE BLOOD COUNT 6.9 X10'3 (4.5-11.0)
[2018-02-15 11:48] LABS: ALANINE AMINOTRANSFERASE 20 U/L (12-78); ALBUMIN 2.9 G/DL (3.4-5.0); ALBUMIN/GLOBULIN RATIO 0.7 (1.1-1.5); ALKALINE PHOSPHATASE 81 IU/L (46-116); ANION GAP 11 (8-16); ASPARTATE AMINO TRANSFERASE 15 U/L (10-37); BILIRUBIN,TOTAL 0.3 MG/DL (0.1-1.0); BLOOD UREA NITROGEN 13 MG/DL (7-18); BUN/CREATININE RATIO 15.9 (6.6-38.0); CALCIUM 9.2 MG/DL (8.5-10.1); CHLORIDE 106 MMOL/L (99-107); CREATININE 0.82 MG/DL (0.40-0.90); GLUCOSE 105 MG/DL (70-104); POTASSIUM 3.6 MMOL/L (3.5-5.1); SODIUM 143 MMOL/L (135-145); TOTAL CARBON DIOXIDE 25.8 MMOL/L (24-32); TOTAL PROTEIN 7.3 G/DL (6.4-8.2); eGFR 68 ML/MIN
[2018-02-15 11:52] LABS: PARTIAL THROMBOPLASTIN TIME 45 SECONDS (22-32); PROTHROMBIN TIME 9.9 SECONDS (9.0-12.0)
[2018-02-15] MEDS: ketorolac tromethamine 15mg/ml inj. IM ONE ×2 (12:40→12:46)
[2018-02-15] MEDS ORDERED: PRED10TA23 PO (13:08)
[2018-02-15] MEDS ORDERED: ALBU8.5H8 IH (13:19)
[2018-02-15 13:34] VITALS: BP 129/83
== END 2018-02-15 13:36 | disposition home or self-care (01) ==
LOC: ER 10:42
DX: J20.9 Acute bronchitis, unspecified (principal); I48.91 Unspecified atrial fibrillation; I11.0 Hypertensive heart disease with heart failure; I50.9 Heart failure, unspecified; J45.909 Unspecified asthma, uncomplicated; K21.9 Gastro-esophageal reflux disease without esophagitis; M19.90 Unspecified osteoarthritis, unspecified site; Z86.718 Personal history of other venous thrombosis and embolism; Z86.73 Personal history of transient ischemic attack (TIA), and cerebral infarction without residual deficits; Z98.890 Other specified postprocedural states; Z90.89 Acquired absence of other organs; Z85.3 Personal history of malignant neoplasm of breast; Z87.11 Personal history of peptic ulcer disease; Z79.82 Long term (current) use of aspirin; Z79.899 Other long term (current) drug therapy; Z91.018 Allergy to other foods; Z88.0 Allergy status to penicillin; Z88.2 Allergy status to sulfonamides; Z88.5 Allergy status to narcotic agent; Z88.1 Allergy status to other antibiotic agents; Z91.041 Radiographic dye allergy status
CPT/HCPCS: 36415; 71045; 80053; 83880; 85025; 85610; 85730; 87502; 87503; 93005; 94640; 94760; 96372; 99284; J1100; J1885

== ENCOUNTER 2018-04-26 11:33 | Emergency (ER) | payer MEDICARE ==
[~2018-04-26] VITALS: Ht 157.5 cm; Wt 111.8 kg
[~2018-04-26 11:33] MED LIST changes: +ALBU8.5H8 IH
[2018-04-26] MEDS ORDERED: cephalexin 250mg capsule PO ONE (12:20)
[2018-04-26 12:27] LABS: CLARITY,URINE CLEAR (Clear); COLOR,URINE STRAW (Yellow); GLUCOSE, URINE NEGATIVE (Neg); KETONES,URINE NEGATIVE (Neg); LEUKOCYTE ESTERASE ,URINE TRACE (Neg); NITRITES, URINE NEGATIVE (Neg); OCCULT BLOOD,URINE TRACE-INTACT (Neg); PROTEIN,URINE NEGATIVE (Neg); UROBILINOGEN,URINE 0.2 E.U/dL (0.2-1.0)
[2018-04-26 12:33] LABS: UA COLLECTION TYPE CLN CATCH MIDSTREAM
[2018-04-26 12:36] LABS: SQUAMOUS EPITHELIAL CELL,UR FEW /LPF (FEW)
[2018-04-26 12:39] LABS: BACTERIA,URINE FEW /HPF (Neg); MUCUS STRANDS NONE SEEN /LPF (Neg); RBC,URINE 0-2 /HPF (0-2); WBC,URINE 0-4 /HPF (0-4)
[2018-04-26 12:45] LABS: BASOPHILS % (AUTO) 0.7 % (0-1); EOSINOPHILS # (AUTO) 0.1 X10'3 (0-0.9); EOSINOPHILS % (AUTO) 1.1 % (0-6); HEMATOCRIT 41.2 % (35.0-45.0); HEMOGLOBIN 13.4 g/dl (12.0-16.0); LYMPHOCYTES # (AUTO) 1.6 X10'3 (1.1-4.8); LYMPHOCYTES % (AUTO) 23.4 % (21-51); MEAN CORPUSCULAR HEMOGLOBIN 28.9 PG (27.0-31.0); MEAN CORPUSCULAR HGB CONC 32.5 g/dL (33.0-36.5); MEAN CORPUSCULAR VOLUME 88.8 FL (78-98); MEAN PLATELET VOLUME 8.8 FL (7.4-10.4); MONOCYTES # (AUTO) 0.6 X10'3 (0-0.9); MONOCYTES % (AUTO) 9.2 % (2-12); NEUTROPHILS # (AUTO) 4.5 X10'3 (1.8-7.7); NEUTROPHILS % (AUTO) 65.6 % (42-75); PLATELET COUNT 246 X10'3 (140-440); RED BLOOD COUNT 4.64 X10'6 (4.20-5.60); WHITE BLOOD COUNT 6.8 X10'3 (4.5-11.0)
[2018-04-26 13:00] LABS: ALANINE AMINOTRANSFERASE 21 U/L (12-78); ALBUMIN/GLOBULIN RATIO 0.8 (1.1-1.5); ALKALINE PHOSPHATASE 72 IU/L (46-116); ANION GAP 7 (8-16); ASPARTATE AMINO TRANSFERASE 17 U/L (10-37); BILIRUBIN,TOTAL 0.3 MG/DL (0.1-1.0); BLOOD UREA NITROGEN 18 MG/DL (7-18); CALCIUM 9.4 MG/DL (8.5-10.1); CHLORIDE 108 MMOL/L (99-107); CREATININE 0.75 MG/DL (0.40-0.90); GLUCOSE 94 MG/DL (70-104); POTASSIUM 3.9 MMOL/L (3.5-5.1); SODIUM 142 MMOL/L (135-145); TOTAL CARBON DIOXIDE 27.3 MMOL/L (24-32); TOTAL PROTEIN 6.8 G/DL (6.4-8.2); eGFR 75 ML/MIN
[2018-04-26] MEDS ORDERED: CEPH500C5 PO (13:19)
[2018-04-26] MEDS ORDERED: DOXY100C43 PO (13:19)
[2018-04-26 13:43] VITALS: BP 160/92
== END 2018-04-26 13:46 | disposition home or self-care (01) ==
LOC: ER 11:34
DX: L03.116 Cellulitis of left lower limb (principal); L03.115 Cellulitis of right lower limb; N39.0 Urinary tract infection, site not specified; R10.12 Left upper quadrant pain; I48.91 Unspecified atrial fibrillation; I11.0 Hypertensive heart disease with heart failure; I50.9 Heart failure, unspecified; J45.909 Unspecified asthma, uncomplicated; K21.9 Gastro-esophageal reflux disease without esophagitis; M19.90 Unspecified osteoarthritis, unspecified site; Z86.73 Personal history of transient ischemic attack (TIA), and cerebral infarction without residual deficits; Z86.718 Personal history of other venous thrombosis and embolism; Z87.11 Personal history of peptic ulcer disease; Z98.890 Other specified postprocedural states; Z90.89 Acquired absence of other organs; Z91.018 Allergy to other foods; Z88.0 Allergy status to penicillin; Z88.2 Allergy status to sulfonamides; Z88.1 Allergy status to other antibiotic agents; Z88.5 Allergy status to narcotic agent; Z79.82 Long term (current) use of aspirin; Z79.899 Other long term (current) drug therapy
CPT/HCPCS: 36415; 80053; 81001; 85025; 87088; 99284

== ENCOUNTER 2019-10-27 06:11 | Emergency (ER) | payer MEDICARE ==
[~2019-10-27] VITALS: Ht 157.5 cm; Wt 111.0 kg
[2019-10-27] MEDS ORDERED: aspirin 81mg tab.chew PO ONE (06:30)
[2019-10-27 06:43] VITALS: BP 158/95
[2019-10-27] MEDS ORDERED: magnesium oxide 400mg tablet PO ONE (07:30)
== END 2019-10-27 07:53 | disposition home or self-care (01) ==
LOC: ER 06:12
DX: F19.20 Other psychoactive substance dependence, uncomplicated (principal); R60.9 Edema, unspecified; R25.2 Cramp and spasm; M79.89 Other specified soft tissue disorders; I48.91 Unspecified atrial fibrillation; I50.9 Heart failure, unspecified; I11.0 Hypertensive heart disease with heart failure; J45.909 Unspecified asthma, uncomplicated; K21.9 Gastro-esophageal reflux disease without esophagitis; M19.90 Unspecified osteoarthritis, unspecified site; Z86.718 Personal history of other venous thrombosis and embolism; Z86.73 Personal history of transient ischemic attack (TIA), and cerebral infarction without residual deficits; Z90.49 Acquired absence of other specified parts of digestive tract; Z90.89 Acquired absence of other organs; Z98.890 Other specified postprocedural states; Z88.0 Allergy status to penicillin; Z88.2 Allergy status to sulfonamides; Z88.5 Allergy status to narcotic agent; Z88.8 Allergy status to other drugs, medicaments and biological substances; Z79.82 Long term (current) use of aspirin; Z79.2 Long term (current) use of antibiotics; Z79.899 Other long term (current) drug therapy
CPT/HCPCS: 93970; 99284

== ENCOUNTER 2020-02-20 15:54 | Emergency (ER) | payer MEDICARE ==
[~2020-02-20] VITALS: Ht 157.5 cm; Wt 104.5 kg
[2020-02-20 16:10] VITALS: BP 154/94
--- NOTE | 2020-02-20 16:18 | NUR ---
PATIENT AMBULATED FOR 30 FEET AND O2 SAT RECHECKED WITH RESULT OF HR 120'S AND O2 SAT 93-95% ON ROOM AIR.
[2020-02-20] MEDS ORDERED: AZIT500T PO (16:27)
[2020-02-20] MEDS ORDERED: PRED10TA23 PO (16:27)
[2020-02-20] MEDS ORDERED: ALBU6.7H9 INH (16:27)
[2020-02-20] MEDS ORDERED: BENZ-38 PO (16:27)
== END 2020-02-20 16:52 | disposition home or self-care (01) ==
LOC: ER 15:55
DX: J40 Bronchitis, not specified as acute or chronic (principal); Z20.828 Contact with and (suspected) exposure to other viral communicable diseases; I11.0 Hypertensive heart disease with heart failure; I50.9 Heart failure, unspecified; K21.9 Gastro-esophageal reflux disease without esophagitis; M19.90 Unspecified osteoarthritis, unspecified site; Z86.718 Personal history of other venous thrombosis and embolism; Z86.73 Personal history of transient ischemic attack (TIA), and cerebral infarction without residual deficits; Z98.890 Other specified postprocedural states; Z90.89 Acquired absence of other organs; Z91.018 Allergy to other foods; Z91.041 Radiographic dye allergy status; Z88.0 Allergy status to penicillin; Z88.2 Allergy status to sulfonamides; Z88.5 Allergy status to narcotic agent; Z88.6 Allergy status to analgesic agent; Z88.1 Allergy status to other antibiotic agents; Z79.82 Long term (current) use of aspirin; Z79.899 Other long term (current) drug therapy
CPT/HCPCS: 36415; 71045; 87635; 99284

== ENCOUNTER 2020-07-04 11:04 | Emergency (ER) | payer MEDICARE ==
[~2020-07-04] VITALS: Ht 157.5 cm; Wt 110.5 kg
[~2020-07-04 11:04] MED LIST changes: +ALBU6.7H9 INH; +LISI10TA27 PO; -LISI10TA4 PO
[2020-07-04 14:07] VITALS: BP 144/88
[2020-07-04 14:24] LABS: URINE AMPHETAMINE SCREEN NEGATIVE (Neg); URINE BARBITUATE SCREEN NEGATIVE (Neg); URINE BENZODIAZEPINES SCREEN NEGATIVE (Neg); URINE CANNABINOID SCREEN NEGATIVE (Neg); URINE COCAINE SCREEN NEGATIVE (Neg); URINE METHADONE SCREEN NEGATIVE (Neg); URINE OPIATE SCREEN POSITIVE (Neg); URINE PHENCYCLIDINE SCREEN NEGATIVE (Neg)
== END 2020-07-04 14:09 | disposition home or self-care (01) ==
LOC: ER 11:05
DX: M79.662 Pain in left lower leg (principal); R60.0 Localized edema; I11.0 Hypertensive heart disease with heart failure; J45.909 Unspecified asthma, uncomplicated; K21.9 Gastro-esophageal reflux disease without esophagitis; Z91.040 Latex allergy status; Z88.0 Allergy status to penicillin; Z88.2 Allergy status to sulfonamides; Z88.1 Allergy status to other antibiotic agents; Z79.899 Other long term (current) drug therapy
CPT/HCPCS: 80305; 93971; 99284

== ENCOUNTER 2020-08-07 09:30 | Emergency (ER) | payer MEDICARE ==
[~2020-08-07] VITALS: Ht 157.5 cm; Wt 107.4 kg
[2020-08-07 10:18] LABS: BASOPHILS # (AUTO) 0.1 X10'3 (0-0.2); BASOPHILS % (AUTO) 0.9 % (0-1); EOSINOPHILS # (AUTO) 0.1 X10'3 (0-0.9); EOSINOPHILS % (AUTO) 1.7 % (0-6); HEMATOCRIT 43.3 % (35.0-45.0); HEMOGLOBIN 14.2 g/dl (12.0-16.0); LYMPHOCYTES # (AUTO) 1.6 X10'3 (1.1-4.8); LYMPHOCYTES % (AUTO) 23.3 % (21-51); MEAN CORPUSCULAR HEMOGLOBIN 29.6 PG (27.0-31.0); MEAN CORPUSCULAR HGB CONC 32.9 g/dL (33.0-36.5); MEAN CORPUSCULAR VOLUME 90.1 FL (78-98); MEAN PLATELET VOLUME 8.7 FL (7.4-10.4); MONOCYTES # (AUTO) 0.6 X10'3 (0-0.9); MONOCYTES % (AUTO) 9.4 % (2-12); NEUTROPHILS # (AUTO) 4.3 X10'3 (1.8-7.7); NEUTROPHILS % (AUTO) 64.7 % (42-75); PLATELET COUNT 223 X10'3 (140-440); RED BLOOD COUNT 4.81 X10'6 (4.20-5.60); RED CELL DISTRIBUTION WIDTH 15.4 % (11.5-14.5); WHITE BLOOD COUNT 6.7 X10'3 (4.5-11.0)
[2020-08-07 10:31] LABS: PARTIAL THROMBOPLASTIN TIME 31 SECONDS (22-32)
[2020-08-07 10:34] LABS: ALANINE AMINOTRANSFERASE 16 U/L (12-78); ALBUMIN/GLOBULIN RATIO 0.7 (1.1-1.5); ALKALINE PHOSPHATASE 81 IU/L (46-116); ANION GAP 10 (8-16); ASPARTATE AMINO TRANSFERASE 16 U/L (10-37); BILIRUBIN,TOTAL 0.4 MG/DL (0.1-1.0); BLOOD UREA NITROGEN 13 MG/DL (7-18); BUN/CREATININE RATIO 16.5 (6.6-38.0); CALCIUM 9.3 MG/DL (8.5-10.1); CHLORIDE 108 MMOL/L (99-107); CREATININE 0.79 MG/DL (0.40-0.90); GLUCOSE 99 MG/DL (70-104); POTASSIUM 3.9 MMOL/L (3.5-5.1); SODIUM 144 MMOL/L (135-145); TOTAL CARBON DIOXIDE 26.1 MMOL/L (24-32); TOTAL PROTEIN 7.1 G/DL (6.4-8.2); eGFR 71 ML/MIN
--- NOTE | 2020-08-07 10:40 | NUR ---
US at bedside
[2020-08-07] MEDS ORDERED: apixaban 5mg tablet PO ONE (10:55)
[2020-08-07] MEDS ORDERED: apixaban 5mg tablet PO SCH (10:55)
[2020-08-07] MEDS ORDERED: APIX5TAB3 PO (11:00)
[2020-08-07 11:15] VITALS: BP 167/102
== END 2020-08-07 11:20 | disposition home or self-care (01) ==
LOC: ER 09:31
DX: I82.403 Acute embolism and thrombosis of unspecified deep veins of lower extremity, bilateral (principal); R60.0 Localized edema; R06.01 Orthopnea; I48.91 Unspecified atrial fibrillation; I11.0 Hypertensive heart disease with heart failure; I50.9 Heart failure, unspecified; J45.909 Unspecified asthma, uncomplicated; K21.9 Gastro-esophageal reflux disease without esophagitis; M19.90 Unspecified osteoarthritis, unspecified site; Z86.73 Personal history of transient ischemic attack (TIA), and cerebral infarction without residual deficits; Z87.11 Personal history of peptic ulcer disease; Z85.3 Personal history of malignant neoplasm of breast; Z90.89 Acquired absence of other organs; Z98.890 Other specified postprocedural states; Z88.0 Allergy status to penicillin; Z88.2 Allergy status to sulfonamides; Z88.5 Allergy status to narcotic agent; Z88.8 Allergy status to other drugs, medicaments and biological substances; Z91.018 Allergy to other foods; Z79.82 Long term (current) use of aspirin; Z79.2 Long term (current) use of antibiotics; Z79.899 Other long term (current) drug therapy
CPT/HCPCS: 36415; 71045; 80053; 83880; 84443; 84484; 85025; 85610; 85730; 93005; 93970; 99285

== ENCOUNTER 2020-09-22 19:02 | Emergency (ER) | payer MEDICARE ==
[~2020-09-22] VITALS: Ht 157.5 cm; Wt 115.0 kg
[~2020-09-22 19:02] MED LIST changes: +ALBU8.5H17 IH; +ALBU8.5H17 INH; -ALBU8.5H8 IH; -ALBU8.5H8 INH; +APIX5TAB3 PO
[2020-09-22] MEDS ORDERED: cephalexin 500mg capsule PO ONE (21:25)
[2020-09-22] MEDS ORDERED: FURO-150 PO (22:26)
[2020-09-22] MEDS ORDERED: CEPH250T PO (22:26)
[2020-09-22] MEDS ORDERED: POTA10TA19 PO (22:26)
[2020-09-22 23:02] LABS: BASOPHILS # (AUTO) 0.1 X10'3 (0-0.2); BASOPHILS % (AUTO) 1.4 % (0-1); EOSINOPHILS # (AUTO) 0.1 X10'3 (0-0.9); EOSINOPHILS % (AUTO) 1.6 % (0-6); HEMATOCRIT 42.1 % (35.0-45.0); HEMOGLOBIN 13.8 g/dl (12.0-16.0); LYMPHOCYTES # (AUTO) 1.6 X10'3 (1.1-4.8); LYMPHOCYTES % (AUTO) 18.1 % (21-51); MEAN CORPUSCULAR HEMOGLOBIN 29.4 PG (27.0-31.0); MEAN CORPUSCULAR HGB CONC 32.7 g/dL (33.0-36.5); MEAN CORPUSCULAR VOLUME 89.9 FL (78-98); MEAN PLATELET VOLUME 9.4 FL (7.4-10.4); MONOCYTES # (AUTO) 0.7 X10'3 (0-0.9); MONOCYTES % (AUTO) 7.5 % (2-12); NEUTROPHILS # (AUTO) 6.5 X10'3 (1.8-7.7); NEUTROPHILS % (AUTO) 71.4 % (42-75); PLATELET COUNT 238 X10'3 (140-440); RED BLOOD COUNT 4.68 X10'6 (4.20-5.60); RED CELL DISTRIBUTION WIDTH 16.1 % (11.5-14.5); WHITE BLOOD COUNT 9.1 X10'3 (4.5-11.0)
[2020-09-22 23:22] LABS: ALANINE AMINOTRANSFERASE 17 U/L (12-78); ALBUMIN 3.1 G/DL (3.4-5.0); ALBUMIN/GLOBULIN RATIO 0.8 (1.1-1.5); ALKALINE PHOSPHATASE 90 IU/L (46-116); ANION GAP 6 (8-16); ASPARTATE AMINO TRANSFERASE 12 U/L (10-37); BILIRUBIN,TOTAL 0.3 MG/DL (0.1-1.0); BLOOD UREA NITROGEN 16 MG/DL (7-18); BUN/CREATININE RATIO 17.8 (6.6-38.0); CALCIUM 9.2 MG/DL (8.5-10.1); CHLORIDE 110 MMOL/L (99-107); GLUCOSE 94 MG/DL (70-104); POTASSIUM 3.9 MMOL/L (3.5-5.1); SODIUM 145 MMOL/L (135-145); TOTAL CARBON DIOXIDE 29.4 MMOL/L (24-32); TOTAL PROTEIN 7.1 G/DL (6.4-8.2); eGFR 61 ML/MIN
[2020-09-22 23:53] VITALS: BP 148/101
== END 2020-09-22 23:55 | disposition home or self-care (01) ==
LOC: ER 19:04
DX: R60.0 Localized edema (principal); L03.116 Cellulitis of left lower limb; L03.115 Cellulitis of right lower limb; I48.91 Unspecified atrial fibrillation; I11.0 Hypertensive heart disease with heart failure; I50.9 Heart failure, unspecified; J45.909 Unspecified asthma, uncomplicated; K21.9 Gastro-esophageal reflux disease without esophagitis; M19.90 Unspecified osteoarthritis, unspecified site; Z86.718 Personal history of other venous thrombosis and embolism; Z85.3 Personal history of malignant neoplasm of breast; Z86.73 Personal history of transient ischemic attack (TIA), and cerebral infarction without residual deficits; Z87.11 Personal history of peptic ulcer disease; Z79.2 Long term (current) use of antibiotics; Z79.899 Other long term (current) drug therapy; Z91.041 Radiographic dye allergy status; Z88.0 Allergy status to penicillin; Z88.1 Allergy status to other antibiotic agents; Z88.2 Allergy status to sulfonamides; Z88.8 Allergy status to other drugs, medicaments and biological substances; Z91.018 Allergy to other foods
CPT/HCPCS: 36415; 80053; 85025; 99283

== ENCOUNTER 2022-08-07 10:56 | Emergency (ER) | payer MEDICARE, MEDICAID ==
[~2022-08-07] VITALS: Ht 160 cm; Wt 107.0 kg
[~2022-08-07 10:56] MED LIST changes: +ALBU6.7H14 INH; -ALBU6.7H9 INH; -ALBU8.5H17 IH; -ALBU8.5H17 INH; -AZIT250T PO; -CLIN150C8 PO; -FURO-150 PO; +FURO20TA4 PO; -GUAI100L97 PO; +IPRA3AMP9 NEB; -LACT1CAP26 PO; -LISI10TA27 PO; +LORA10CA PO; -LORA10TA65 PO; +LOSA50TA64 PO; +PANT40TA54 PO; +POTA-188 PO; -POTA10TA36 PO
[2022-08-07 11:23] VITALS: BP 164/97
[2022-08-07 12:48] LABS: BASOPHILS # (AUTO) 0.1 X10'3 (0-0.2); BASOPHILS % (AUTO) 0.7 % (0-1); EOSINOPHILS # (AUTO) 0.1 X10'3 (0-0.9); EOSINOPHILS % (AUTO) 1.2 % (0-6); HEMATOCRIT 38.8 % (35.0-45.0); HEMOGLOBIN 12.6 g/dl (12.0-16.0); LYMPHOCYTES # (AUTO) 1.4 X10'3 (1.1-4.8); LYMPHOCYTES % (AUTO) 16.7 % (21-51); MEAN CORPUSCULAR HGB CONC 32.6 g/dL (33.0-36.5); MEAN CORPUSCULAR VOLUME 82.8 FL (78-98); MONOCYTES # (AUTO) 0.8 X10'3 (0-0.9); MONOCYTES % (AUTO) 9.4 % (2-12); NEUTROPHILS # (AUTO) 6.2 X10'3 (1.8-7.7); PLATELET COUNT 248 X10'3 (140-440); RED BLOOD COUNT 4.68 X10'6 (4.20-5.60); RED CELL DISTRIBUTION WIDTH 17.7 % (11.5-14.5); WHITE BLOOD COUNT 8.5 X10'3 (4.5-11.0)
[2022-08-07 12:49] LABS: APTT 29 SECONDS (22-32)
[2022-08-07 13:01] LABS: ALANINE AMINOTRANSFERASE 17 U/L (12-78); ALBUMIN 3.3 G/DL (3.4-5.0); ALBUMIN/GLOBULIN RATIO 0.8 (1.1-1.5); ALKALINE PHOSPHATASE 89 IU/L (46-116); ANION GAP 10 (8-16); ASPARTATE AMINO TRANSFERASE 13 U/L (10-37); BILIRUBIN,TOTAL 0.4 MG/DL (0.1-1.0); BLOOD UREA NITROGEN 14 MG/DL (7-18); BUN/CREATININE RATIO 15.9 (10.0-20.0); CALCIUM 9.5 MG/DL (8.5-10.1); CHLORIDE 107 MMOL/L (99-107); CREATININE 0.88 MG/DL (0.40-0.90); GLUCOSE 95 MG/DL (70-104); POTASSIUM 3.8 MMOL/L (3.5-5.1); SODIUM 142 MMOL/L (135-145); TOTAL CARBON DIOXIDE 24.6 MMOL/L (24-32); TOTAL PROTEIN 7.2 G/DL (6.4-8.2); eGFR 62 ML/MIN
== END 2022-08-07 16:24 | disposition home or self-care (01) ==
LOC: ER 10:56
DX: R60.0 Localized edema (principal); Z79.01 Long term (current) use of anticoagulants; I48.91 Unspecified atrial fibrillation; I11.0 Hypertensive heart disease with heart failure; I50.9 Heart failure, unspecified; E78.00 Pure hypercholesterolemia, unspecified; J44.9 Chronic obstructive pulmonary disease, unspecified; M19.90 Unspecified osteoarthritis, unspecified site; Z85.3 Personal history of malignant neoplasm of breast; Z86.718 Personal history of other venous thrombosis and embolism; Z86.73 Personal history of transient ischemic attack (TIA), and cerebral infarction without residual deficits; Z79.82 Long term (current) use of aspirin; Z79.899 Other long term (current) drug therapy; Z91.041 Radiographic dye allergy status; Z88.1 Allergy status to other antibiotic agents; Z91.018 Allergy to other foods; Z91.048 Other nonmedicinal substance allergy status; Z88.0 Allergy status to penicillin
CPT/HCPCS: 36415; 71045; 80053; 83880; 85025; 85610; 85730; 93005; 93970; 99285

== ENCOUNTER 2023-06-30 08:58 | Outpatient (CLI) | payer MEDICARE, MEDICAID | END 2023-06-30 23:59 | disposition home or self-care (01) | LOC: RAD 08:58 | PROVIDERS: ATTEND Family Medicine | DX: M17.12 Unilateral primary osteoarthritis, left knee (principal); M25.562 Pain in left knee | CPT/HCPCS: 73564 ==

== ENCOUNTER 2023-07-28 07:40 | Emergency (ER) | payer MEDICARE, MEDICAID ==
[~2023-07-28] VITALS: Ht 154.9 cm; Wt 100.5 kg
[2023-07-28 07:44] VITALS: BP 180/94; PULSE 95; TEMP 97.5; O2SAT 98
[2023-07-28 11:20] VITALS: RESP 18
[2023-07-28] MEDS: HYDROcodone/acetaminophen 5mg/325mg tablet PO ONE (11:20)
[2023-07-28] MEDS: LIDOcaine 5% patch TP ONE (11:20)
[2023-07-28] MEDS: ketorolac tromethamine 15mg/ml inj. IM ONE (11:20)
== END 2023-07-28 11:28 | disposition home or self-care (01) ==
LOC: ER 07:41
DX: M25.512 Pain in left shoulder (principal); I48.91 Unspecified atrial fibrillation; I11.0 Hypertensive heart disease with heart failure; I50.9 Heart failure, unspecified; E78.00 Pure hypercholesterolemia, unspecified; J45.909 Unspecified asthma, uncomplicated; J44.9 Chronic obstructive pulmonary disease, unspecified; K21.9 Gastro-esophageal reflux disease without esophagitis; M19.90 Unspecified osteoarthritis, unspecified site; Z86.718 Personal history of other venous thrombosis and embolism; Z85.3 Personal history of malignant neoplasm of breast; Z98.890 Other specified postprocedural states; Z91.041 Radiographic dye allergy status; Z88.0 Allergy status to penicillin; Z88.2 Allergy status to sulfonamides; Z88.8 Allergy status to other drugs, medicaments and biological substances; Z91.018 Allergy to other foods; Z79.82 Long term (current) use of aspirin; Z79.899 Other long term (current) drug therapy; Z86.73 Personal history of transient ischemic attack (TIA), and cerebral infarction without residual deficits
CPT/HCPCS: 73030; 96372; 99283; J1885

== ENCOUNTER 2024-03-20 14:28 | Emergency (ER) | payer MEDICARE, MEDICAID ==
[~2024-03-20] VITALS: Ht 154.9 cm; Wt 105.2 kg
[2024-03-20 14:34] VITALS: TEMP 97.7
[2024-03-20 17:21] LABS: BILIRUBIN,URINE NEGATIVE (Neg); CLARITY,URINE CLEAR (Clear); COLOR,URINE YELLOW (Yellow); GLUCOSE, URINE NEGATIVE (Neg); KETONES,URINE NEGATIVE (Neg); LEUKOCYTE ESTERASE ,URINE NEGATIVE (Neg); NITRITES, URINE POSITIVE (Neg); OCCULT BLOOD,URINE NEGATIVE (Neg); PROTEIN,URINE NEGATIVE (Neg)
[2024-03-20 17:22] LABS: UA COLLECTION TYPE CLN CATCH MIDSTREAM
[2024-03-20 17:27] LABS: BACTERIA,URINE 4+ /HPF (Neg); RBC,URINE NONE SEEN /HPF (0-2); SQUAMOUS EPITHELIAL CELL,UR MODERATE /LPF (FEW)
[2024-03-20] MEDS: cephalexin 250mg capsule PO ONE (19:30)
[2024-03-20] MEDS ORDERED: CEPH250T PO (19:30)
[2024-03-20 19:31] VITALS: BP 153/64; PULSE 86; RESP 16; O2SAT 98
== END 2024-03-20 19:49 | disposition home or self-care (01) ==
LOC: ER 14:28
DX: M71.22 Synovial cyst of popliteal space [Baker], left knee (principal); M71.21 Synovial cyst of popliteal space [Baker], right knee; I82.493 Acute embolism and thrombosis of other specified deep vein of lower extremity, bilateral; N39.0 Urinary tract infection, site not specified; K21.9 Gastro-esophageal reflux disease without esophagitis; M19.90 Unspecified osteoarthritis, unspecified site; J44.9 Chronic obstructive pulmonary disease, unspecified; I50.9 Heart failure, unspecified; I48.91 Unspecified atrial fibrillation; I11.0 Hypertensive heart disease with heart failure; E78.00 Pure hypercholesterolemia, unspecified; Z85.3 Personal history of malignant neoplasm of breast; Z86.73 Personal history of transient ischemic attack (TIA), and cerebral infarction without residual deficits; Z88.0 Allergy status to penicillin; Z88.2 Allergy status to sulfonamides; Z88.5 Allergy status to narcotic agent; Z88.1 Allergy status to other antibiotic agents; Z88.8 Allergy status to other drugs, medicaments and biological substances; Z90.89 Acquired absence of other organs; Z91.041 Radiographic dye allergy status; Z98.890 Other specified postprocedural states
CPT/HCPCS: 81001; 87088; 87186; 93970; 99284; A6449; 87077

== ENCOUNTER 2024-10-27 08:45 | Emergency (ER) | payer MEDICARE, MEDICAID ==
[~2024-10-27] VITALS: Ht 157.5 cm; Wt 106.8 kg
[2024-10-27 08:56] VITALS: TEMP 97.3
--- NOTE | 2024-10-27 09:24 | RADIOLOGY REPORT ---
EXAM: DI CHEST,TWO VIEWS CLINICAL HISTORY: COUGH X4 WEEKS COMPARISON: CHEST,SINGLE VIEW on DOS: 08/07/22, CT CHEST on DOS: 03/27/22, CHEST,SINGLE VIEW on DOS: 03/27/22, CHEST,SINGLE VIEW on DOS: 08/07/20, CHEST,SINGLE VIEW on DOS: 02/20/20 TECHNIQUE: Frontal and lateral view of the chest was obtained FINDINGS: Lines and Tubes: None Lungs: No focal consolidation. Low lung volumes Pleura: No effusion. No pneumothorax. Cardiomediastinal contours: Unremarkable. Atherosclerotic vascular calcifications of the thoracic aorta are noted. Bones: No acute osseous abnormality. IMPRESSION: No acute cardiopulmonary disease.
--- NOTE | 2024-10-27 10:55 | ELECTROCARDIOGRAPH REPORT ---
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
[2024-10-27 11:17] LABS: MEAN PLATELET VOLUME 9.2 FL (7.4-10.4); RED CELL DISTRIBUTION WIDTH 15.7 % (11.5-14.5)
[2024-10-27 11:22] LABS: INR 1.0 INR
[2024-10-27 11:25] LABS: CREATININE 0.69 MG/DL (0.40-0.90); TOTAL CARBON DIOXIDE 30.7 MMOL/L (24-32); eCRCL 51 ML/MIN; eGFR 82 ML/MIN
[2024-10-27] MEDS: ipratropium/albuterol 3ml nebule NEB ONE ×2 (11:34→13:17)
[2024-10-27 11:35] VITALS: PULSE 107; PULSE 90; RESP 20; O2SAT 96
[2024-10-27 11:43] VITALS: PULSE 88; RESP 18
[2024-10-27 12:05] VITALS: BP 146/69
[2024-10-27 12:29] LABS: LEUKOCYTE ESTERASE ,URINE NEGATIVE (Neg); NITRITES, URINE NEGATIVE (Neg); OCCULT BLOOD,URINE NEGATIVE (Neg)
[2024-10-27 12:41] LABS: UA COLLECTION TYPE NON-SPECIFIED
[2024-10-27] MEDS ORDERED: METH4TAB81 PO (12:47)
--- NOTE | 2024-10-27 12:47 | Physician Documentation ---
History of Present Illness ~ Chief Complaint: Flu Symptoms Stated Complaint: COUGH Time Seen by MD: 10:58 Primary Medical Doctor: LEE GALLOWAY Source: patient Mode of Arrival: Ambulatory Exam Limitations: no limitations HPI 79-year-old female with chief complaint dry cough which started three weeks ago. Patient states that about 10 days ago she tested positive for influenza a and was treated with Tamiflu, azithromycin, Tessalon Perles and given a prescription for albuterol inhaler. Patient states she does have asthma and uses an albuterol inhaler intermittently but nothing on a regular basis. She has been using the albuterol regularly and it has not been helping with her cough or shortness of breath. She states that every time she takes a deep breath in it triggers her to cough. She denies chest pain or worsening of her chronic lower extremity edema. She does have chronic lymphedema which is already being managed. She denies orthopnea, PND, fever, chills. Cough is dry. Medication Reconciliation Allergies: Coded Allergies: onion (Verified Allergy, Severe, 03/20/24) can't digest Iodinated Contrast Media (Unverified Allergy, Unknown, STOP BREATHING, 03/20/24) Penicillins (Verified Allergy, Unknown, RASH, 03/20/24) Sulfa (Sulfonamide Antibiotics) (Verified Allergy, Unknown, RASH, 03/20/24) adhesive (Verified Allergy, Unknown, 03/20/24) codeine (Verified Allergy, Unknown, ITCH AND RASH, 03/20/24) iodine (Verified Allergy, Unknown, 02/20/20) levofloxacin (Verified Allergy, Unknown, 02/20/20) blueberry (Verified Adverse Reaction, Mild, rash, 02/20/20) odalys (Verified Adverse Reaction, Mild, rash, 02/20/20) Scheduled Albuterol Sulfate (Proventil Hfa), 2 PUFFS INH Q4H, (Reported) Apixaban (Eliquis), 1 TAB PO Q12H, (Reported) Aspirin (Aspirin), 1 TAB.CHEW PO DAILY, (Reported) Atorvastatin Calcium* (Lipitor*), 1 TABLET PO DAILY, (Reported) Carvedilol (Coreg), 1 TAB PO Q12H, (Reported) Furosemide (Furosemide), 20 MG PO DAILY Ipratropium/Albuterol Sulfate (IPRAT-ALBUT 0.5-3(2.5) MG/3 ML nebule), 3 ML NEB Q4H Loratadine (Claritin), 1 CAP PO DAILY, (Reported) Losartan Potassium (Losartan Potassium), 50 MG PO DAILY Methylprednisolone (Medrol Dosepak), 0 PO UD Pantoprazole Sodium (Pantoprazole Sodium), 40 MG PO BID Potassium Chloride* (Klor-Con*), 1 TAB PO DAILY, (Reported) Scheduled PRN Hydrocodone Bit/Acetaminophen (Hydrocodon-Acetaminophen 5-325), 1 MG PO TID PRN PRN for breakthrough pain, (Reported) Past Medical History Past Medical History: CVA/TIA/Stroke, Intracerebral Hemorrahage, Cataracts, Atrial Fibrillation, Congestive Heart Failure, High Cholesterol, Hypertension, Asthma, COPD, Pneumonia, Diverticulitis, GERD, GI Bleed, Peptic Ulcer Disease, Arthritis, Deep Vein Thrombosis, Cellulitis, Breast Cancer Past Surgical History: abdominal surgery, orthopedic surgeries, tonsillectomy, other Other Past Surgical History: Cataracts Smoking Status: Never smoker Alcohol Use: None Drug Use: none Lives with: Family Lives In: Home Occupation: retired Review of Systems All Other Systems at this time: Reviewed and Negative Physical Exam Vital Signs: Temperature: 97.3, Source: Temporal, Heart Rate: 74, Respiratory Rate: 15, BP: 146/69, Pulse Oximetry: 96, Weight: 106.820 Oxygen Flow Rate: 0 Physical Exam GENERAL: Alert, no acute distress. HEENT: NCAT, EOMI, PERRL, normal oropharynx, moist oral mucosa. NECK: Supple, trachea midline. CARDIAC: Regular rate and rhythm, no murmurs, rubs, or gallops. PV: Equal distal pulses. No lower extremity edema, cap refill less than 2 seconds. RESPIRATORY: WHEEZING THROUGHOUT POSTERIOR LUNG AGUERO, NO RHONCHI. COUGHING THROUGHOUT EXAM. WITH EVERY DEEP RESPIRATION PATIENT GOES INTO A COUGHING FIT. GASTROINTESTINAL: Non distended, soft, nontender, No guarding or rebound. MUSCULOSKELETAL: Normal range of motion, nontender, no swelling. Normal gait. NEUROLOGICAL: Awake, alert, and oriented x 3. SKIN: Warm/dry, no pallor, no rash. PSYCH: Alert and appropriate. Affect congruent with mood. Speech is clear. Good eye contact. Progress Results/Orders Results/Orders Orders - PENELOPE RODAS Treatment (10/27/24 11:23) Svn Treatment (10/27/24 12:51) General Nursing Order (10/27/24 13:23) Completed Orders - PENELOPE RODAS Methylprednisolone Sod Succ (Solumedrol (10/27/24 11:25) Ipratropium/Albuterol Nebule (Ipratrop/A (10/27/24 11:25) Ipratropium/Albuterol Nebule (Ipratrop/A (10/27/24 12:55) Medications Received in ER Medications (Trade) Dose Ordered Sig/Vesta Route PRN Reason Start Time Stop Time Status Last Admin Dose Admin (SoluMEDROL 125mg inj) 125 mg ONCE ONCE IV 10/27/24 11:25 10/27/24 11:26 DC 10/27/24 11:56 125 MG (ipratrop/ albuterol 0.5-3(2.5) MG/3ml nebule) 3 ml ONCE ONCE NEB 10/27/24 11:25 10/27/24 11:27 DC 10/27/24 11:34 3 ML (ipratrop/ albuterol 0.5-3(2.5) MG/3ml nebule) 3 ml ONCE ONCE NEB 10/27/24 12:55 10/27/24 12:56 DC 10/27/24 13:17 3 ML Vital Signs 10/27/24 10/27/24 10/27/24 10/27/24 08:56 10:56 11:35 11:43 Temp 97.3 Pulse 96 91 107 88 Resp 22 15 20 18 B/P (MAP) 173/99 165/95 (118) Pulse Ox 97 96 96 O2 Delivery Room Air* Room Air* O2 Flow Rate 0 0 0 FiO2 21 21 10/27/24 10/27/24 10/27/24 10/27/24 12:01 12:05 13:17 13:25 Pulse 74 89 112 Resp 15 15 18 18 B/P (MAP) 146/69 (94) Pulse Ox 96 98 O2 Delivery Room Air* Room Air* O2 Flow Rate 0 0 FiO2 21 21 Laboratory Tests Test 10/27/24 10:13 10/27/24 11:02 10/27/24 11:40 SARS-CoV-2 Antigen (Rapid) Negative White Blood Count 7.0 Red Blood Count 4.64 Hemoglobin 14.0 Hematocrit 42.7 Mean Corpuscular Volume 91.9 Mean Corpuscular Hemoglobin 30.1 Mean Corpuscular Hemoglobin Concent 32.7 L Red Cell Distribution Width 15.7 H Platelet Count 200 Mean Platelet Volume 9.2 Neutrophils (%) (Auto) 67.2 Lymphocytes (%) (Auto) 22.0 Monocytes (%) (Auto) 8.9 Eosinophils (%) (Auto) 1.4 Basophils (%) (Auto) 0.5 Neutrophils # (Auto) 4.7 Lymphocytes # (Auto) 1.6 Monocytes # (Auto) 0.6 Eosinophils # (Auto) 0.1 Basophils # (Auto) 0.0 CBC Comment Prothrombin Time 9.8 INR International Normalized Ratio 1.0 Coagulation Comments Sodium Level 145 Potassium Level 4.2 Chloride Level 110 H Carbon Dioxide Level 30.7 Anion Gap 4 L Blood Urea Nitrogen 18 Creatinine 0.69 Estimated GFR/1.73 m2 82 BUN/Creatinine Ratio 26.1 H Glucose Level 90 Lactic Acid Level 1.1 Calcium Level 8.9 Magnesium Level 2.4 Total Bilirubin 0.5 Aspartate Amino Transf (AST/SGOT) 13 Alanine Aminotransferase (ALT/SGPT) 12 Alkaline Phosphatase 84 Troponin I High Sensitivity 4 Total Protein 7.1 Albumin 2.9 L Globulin 4.2 Albumin/Globulin Ratio 0.7 L Chemistry Comments Urine Specimen Description Non-specified Urine Color Yellow Urine Clarity Clear Urine pH 6.5 Urine Specific [place] <=1.005 Urine Protein Negative Urine Glucose (UA) Negative Urine Ketones Negative Urine Occult Blood Negative Urine Nitrite Negative Urine Bilirubin Negative Urine Urobilinogen 0.2 Urine Leukocyte Esterase Negative Urine Culture Indicated Not ind Volume Urine Centrifuged 10 ml Urine Comment Re-Evaluation Re-evaluation : Re-Evaluation: Improved Progress WHEEZING IMPROVED SIGNIFICANTLY POST NEB TREATMENT DID COUGH. Medical Decision Making Differential Dx:Considerations: Include: anxiety, asthma, bronchitis, cardiogenic shock, CHF, COPD, dysrhythmia, hypertension, accelerated, hypertension, essential, hypertension, malignant, hyperventilation, hyponatremia, myocardial infarction, panic attack, pneumonia, pneumonitis, pneumothorax, PSVT, pulmonary embolism, respiratory distress, respiratory failure, sinusitis, upper resp. infection Departure Time of Disposition: 12:47 Disposition: 01 HOME / SELF CARE / HOMELESS Impression: Primary Impression: Acute asthma exacerbation Qualified Codes: J45.901 - Unspecified asthma with (acute) exacerbation Condition: Stable Discharge Instructions: Asthma Attack Additional Instructions: STEROID RX SENT TO PHARMACY I ALSO SENT ANOTHER ANTIBIOTIC TO COVER FOR INFECTIONS THAT THE AZITHROMYCIN WOULD NOT HAVE COVERED FOR; HOWEVER, CHEST XRAY WAS NORMAL, NO PNEUMONIA AND LABS ALL NORMAL. WE ALSO TESTED YOU FOR COVID WHICH WAS NORMAL. Referrals: NO PRIMARY CARE PROVIDER (PCP) Prescriptions Methylprednisolone (Medrol Dosepak) 4 Mg Tab.ds.pk 0 PO UD, #21 TAB 0 Refills take 6 Pills Day 1, 5 Pills Day 2, 4 Pills Day 3, 3 Pills Day 4, 2 Pills Day 5 and 1 pill Day 6 Prov: PENELOPE RODAS 10/27/24 Education Educated: Patient Educated regarding: diagnosis, treatment, need for follow up Signature Scribe Signature: Kathleen Attestation: PENELOPE SHAH Oct 27, 2024 12:47
[2024-10-27 13:17] VITALS: PULSE 89; RESP 18; O2SAT 98
[2024-10-27 13:25] VITALS: PULSE 112; RESP 18
== END 2024-10-27 13:37 | disposition home or self-care (01) ==
LOC: ER 08:46
DX: J45.901 Unspecified asthma with (acute) exacerbation (principal); E78.00 Pure hypercholesterolemia, unspecified; I11.0 Hypertensive heart disease with heart failure; I50.9 Heart failure, unspecified; I48.91 Unspecified atrial fibrillation; M19.90 Unspecified osteoarthritis, unspecified site; K21.9 Gastro-esophageal reflux disease without esophagitis; Z86.73 Personal history of transient ischemic attack (TIA), and cerebral infarction without residual deficits; Z20.822 Contact with and (suspected) exposure to COVID-19; Z88.0 Allergy status to penicillin; Z88.1 Allergy status to other antibiotic agents; Z88.2 Allergy status to sulfonamides; Z88.5 Allergy status to narcotic agent; Z88.8 Allergy status to other drugs, medicaments and biological substances; Z90.89 Acquired absence of other organs; Z91.041 Radiographic dye allergy status
CPT/HCPCS: 36415; 71046; 80053; 81003; 83605; 83735; 84484; 85025; 85610; 87811; 93005; 94640; 96374; 99285; J2919; 94760

== ENCOUNTER 2024-11-28 08:25 | Emergency (ER) | payer MEDICARE, MEDICAID ==
[~2024-11-28] VITALS: Ht 154.9 cm; Wt 107.7 kg
[~2024-11-28 08:25] MED LIST changes: +METH4TAB81 PO
--- NOTE | 2024-11-28 08:53 | ELECTROCARDIOGRAPH REPORT ---
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
[2024-11-28 09:16] LABS: MEAN PLATELET VOLUME 8.7 FL (7.4-10.4); RED CELL DISTRIBUTION WIDTH 16.1 % (11.5-14.5)
--- NOTE | 2024-11-28 09:18 | Physician Documentation ---
History of Present Illness General Chief Complaint: Edema Stated Complaint: LEG SWELLING Time Seen by MD: 09:01 OK to notify your PCP?: No Primary Medical Doctor: LEE GALLOWAY Source: patient, RN notes reviewed Mode of Arrival: POV, Wheelchair Exam Limitations: no limitations History of Present Illness Initial Comments 79 year old female, who switched from carvedilol to amlodipine approximately two weeks ago, presents complaining of increased swelling of her bilateral lower extremities, as well as redness of her right lower extremity, over the last week. Additionally she has pain of the right lower extremity, rated 7/10. She denies any shortness of breath or fever. 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 Patient also takes 60 mg of Lasix daily. Medication Reconciliation Allergies: Coded Allergies: onion (Verified Allergy, Severe, 11/28/24) can't digest Iodinated Contrast Media (Unverified Allergy, Unknown, STOP BREATHING, 11/28/24) Penicillins (Verified Allergy, Unknown, RASH, 11/28/24) Sulfa (Sulfonamide Antibiotics) (Verified Allergy, Unknown, RASH, 11/28/24) adhesive (Verified Allergy, Unknown, 11/28/24) codeine (Verified Allergy, Unknown, ITCH AND RASH, 11/28/24) iodine (Verified Allergy, Unknown, 11/28/24) levofloxacin (Verified Allergy, Unknown, 11/28/24) blueberry (Verified Adverse Reaction, Mild, rash, 11/28/24) odalys (Verified Adverse Reaction, Mild, rash, 11/28/24) Scheduled Albuterol Sulfate (Proventil Hfa), 2 PUFFS INH Q4H, (Reported) Apixaban (Eliquis), 1 TAB PO Q12H, (Reported) Aspirin (Aspirin), 1 TAB.CHEW PO DAILY, (Reported) Atorvastatin Calcium* (Lipitor*), 1 TABLET PO DAILY, (Reported) Carvedilol (Coreg), 1 TAB PO Q12H, (Reported) Cephalexin*Monohydrate* (Keflex*), 1 CAP PO Q8H Furosemide (Furosemide), 20 MG PO DAILY Ipratropium/Albuterol Sulfate (IPRAT-ALBUT 0.5-3(2.5) MG/3 ML nebule), 3 ML NEB Q4H Loratadine (Claritin), 1 CAP PO DAILY, (Reported) Losartan Potassium (Losartan Potassium), 50 MG PO DAILY Losartan Potassium (Losartan Potassium), 1 TAB PO DAILY Methylprednisolone (Medrol Dosepak), 0 PO UD Pantoprazole Sodium (Pantoprazole Sodium), 40 MG PO BID Potassium Chloride* (Klor-Con*), 1 TAB PO DAILY, (Reported) Scheduled PRN Hydrocodone Bit/Acetaminophen (Hydrocodon-Acetaminophen 5-325), 1 MG PO TID PRN PRN for breakthrough pain, (Reported) Past Medical History Past Medical History: CVA/TIA/Stroke, Intracerebral Hemorrahage, Cataracts, Atrial Fibrillation, Congestive Heart Failure, High Cholesterol, Hypertension, Asthma, COPD, Pneumonia, Diverticulitis, GERD, GI Bleed, Peptic Ulcer Disease, Arthritis, Deep Vein Thrombosis, Cellulitis, Breast Cancer Past Surgical History: abdominal surgery, orthopedic surgeries, tonsillectomy, other Other Past Surgical History: Cataracts Smoking: Non-Smoker Alcohol Use: None Drug Use: none Lives with: Family Lives In: Home Occupation: retired Review of Systems All Other Systems at this time: Reviewed and Negative ROS As stated above in the HPI, otherwise all systems are reviewed and negative. Physical Exam Physical Exam Vital Signs: RN Vital Signs have been reviewed: Yes, Temperature: 97.9, Source: Temporal, Heart Rate: 101, Respiratory Rate: 18, BP: 163/88, Pulse Oximetry: 97, Weight: 107.730 Oxygen Flow Rate: 0 Pulse Oximetry Reflects: adequate oxygenation Physical Exam VITALS: Reviewed and as above. GENERAL: Alert, no apparent distress. HEENT: Normocephalic, atraumatic, PERRL, EOMI, dry mucosa RESPIRATORY: Lungs clear, normal breath sounds, no respiratory distress. CHEST: No accessory muscle use, no retractions CV: Regular rate, rhythm, no murmur, No: JVD MUSCULOSKELETAL: 2+ nonpitting edema of BLE, erythema to right hays. No deformities SKIN: Warm and dry, no rash NEURO: Oriented x4, No motor or sensory deficit PSYCH: Normal mood and affect, no agitation Progress Results/Orders Reviewed/noted all lab results: Yes Results/Orders Orders - ELAINE SANTIZO MD Chest,Single View (11/28/24 08:45) Monitor (11/28/24 08:45) Saline Lock (11/28/24 08:45) Oxygen (11/28/24 08:45) Vl Venous (11/28/24 09:57) Completed Orders - OHLFS,ELAINE Smith MD Chest,Single View (11/28/24 08:45) Cbc/Diff (11/28/24 08:45) BMP (11/28/24 08:45) PBNP (11/28/24 08:45) Electrocardiogram (11/28/24 08:45) Hs Troponin I W Calculations (11/28/24 08:45) Hs Troponin I W Calculations (11/28/24 10:45) D-Dimer (11/28/24 09:21) Cephalexin Capsule (Keflex Capsule) (11/28/24 09:55) Vl Venous (11/28/24 09:57) Vital Signs 11/28/24 11/28/24 11/28/24 11/28/24 08:31 08:48 10:15 11:53 Temp 97.9 97.9 97.9 Pulse 101 114 94 Resp 18 18 24 19 B/P (MAP) 163/88 152/90 (110) 159/86 Pulse Ox 97 97 95 O2 Flow Rate 0 0 Laboratory Tests Test 11/28/24 09:04 11/28/24 11:00 White Blood Count 6.3 Red Blood Count 4.67 Hemoglobin 14.2 Hematocrit 43.1 Mean Corpuscular Volume 92.1 Mean Corpuscular Hemoglobin 30.4 Mean Corpuscular Hemoglobin Concent 33.1 Red Cell Distribution Width 16.1 H Platelet Count 224 Mean Platelet Volume 8.7 Neutrophils (%) (Auto) 68.2 Lymphocytes (%) (Auto) 20.8 L Monocytes (%) (Auto) 9.0 Eosinophils (%) (Auto) 1.3 Basophils (%) (Auto) 0.7 Neutrophils # (Auto) 4.3 Lymphocytes # (Auto) 1.3 Monocytes # (Auto) 0.6 Eosinophils # (Auto) 0.1 Basophils # (Auto) 0.0 CBC Comment D-Dimer 1.19 H D-Dimer Comment Sodium Level 144 Potassium Level 4.1 Chloride Level 109 H Carbon Dioxide Level 28.6 Anion Gap 6 L Blood Urea Nitrogen 14 Creatinine 0.71 Estimated GFR/1.73 m2 79 BUN/Creatinine Ratio 19.7 Glucose Level 99 Calcium Level 9.1 Troponin I High Sensitivity 4 4 Pro-B-Type Natriuretic Peptide < 30 Albumin 3.1 L Chemistry Comments Troponin I High Sens Percent Delta 0 Troponin I Hi Sens Absolute Change 0 EKG/XRAY/CT/US/VASC/MRI EKG : Additional Comment 0850: EKG interpreted by myself to show NSR at a rate of 98 beats per minute. Normal axis, no acute ST changes. Chest X-Ray : Additional Comments DI CHEST,SINGLE VIEW, HISTORY: CP COMPARISON: DI CHEST,TWO VIEWS on DOS: 10/27/24, CHEST,SINGLE VIEW on DOS: 08/07/22, CT CHEST on DOS: 03/27/22 DI CHEST,TWO VIEWS on DOS: 10/27/24, CHEST,SINGLE VIEW on DOS: 08/07/22, CT CHEST on DOS: 03/27/22 TECHNICAL DATA: 1 view of the chest was obtained. FINDINGS: Lines and tubes: None Cardiomediastinal silhouette: normal Pulmonary vasculature: prominent Lung expansion: normal Lung airspace: normal Lung interstitium: normal Pleura: normal Pneumothorax: no Bones: Unremarkable Other: no IMPRESSION: Mild pulmonary vascular congestion. reviewed by myself (Dr. Santizo) Vascular : Interpreted By: radiologist Impression VASC VL VENOUS HISTORY: COMPARISON: VASC VL VENOUS on DOS: 03/20/24, VL VENOUS on DOS: 08/07/22, VL VENOUS on DOS: 08/07/20 TECHNIQUE: Duplex doppler evaluation of the deep venous system of the lower extremity from the common femoral veins, superficial femoral vein, great saphenous vein, deep femoral vein, popliteal vein, and calf veins, including color doppler and spectral/pulsed waveform analysis, was performed. FINDINGS: Right: - Common femoral vein: Compressible - Deep femoral vein: Compressible - Femoral vein: Compressible - Popliteal vein: Compressible - Posterior tibial vein: Waveforms present - Peroneal vein: Waveforms present - Other: Nothing Left: - Common femoral vein: Compressible - Other: Nothing IMPRESSION: No right lower extremity deep venous thrombosis. Reviewed by myself. Medical Decision Making Additional information obtaine: old records Findings 0850: EKG interpreted by myself to show NSR at a rate of 98 beats per minute. Normal axis, no acute ST changes. The patient is an 79-year-old female with lower extremity swelling she recently started amlodipine she does have some erythema to the lower leg as well, the patient will be treated with antibiotics she is not toxic-appearing prior hospitalizations has been reviewed. The ultrasound was unremarkable there was no evidence of DVT. The patient has been requested that I change her antihypertensive she has been on losartan in the past the patient will be discharged on losartan and she has been told to stop the amlodipine as she desires not to take that. The patient's pulse oximetry was interpreted as normal and adequate. Differential Diagnosis DVT, chronic cellulitis, acute cellulitis, thrombophlebitis, Departure Time of Disposition: 11:14 Disposition: HOME / SELF CARE / HOMELESS Impression: Primary Impression: Cellulitis Qualified Codes: L03.119 - Cellulitis of unspecified part of limb Additional Impression: Edema Qualified Codes: R60.9 - Edema, unspecified Condition: Stable Discharge Instructions: Cellulitis, Adult, [id number], Edema Additional Instructions: Take full course of antibiotics as prescribed. Stop taking amlodipine. Began taking losartan. Follow up with your cardiologi st. Prescriptions Losartan Potassium (Losartan Potassium) 50 Mg Tablet 1 TAB PO DAILY for 30 Days, #30 TAB 0 Refills Prov: ELAINE SANTIZO MD 11/28/24 Cephalexin*Monohydrate* (Keflex*) 500 Mg Capsule 1 CAP PO Q8H for 10 Days, #30 CAP Prov: ELAINE SANTIZO MD 11/28/24 Education Educated: Patient Educated regarding: diagnosis, treatment, need for follow up Signature Scribe Signature: Scribed for Elaine Santizo MD by Sudhir Ashby . 11/28/24 09:50 Attestation: The note accurately reflects work and decisions made by me.Elaine Santizo MD 11/29/24 17:32 ELAINE SANTIZO MD Nov 28, 2024 09:18 SUDHIR OCHOA Nov 28, 2024 09:55
--- NOTE | 2024-11-28 09:38 | RADIOLOGY REPORT ---
DI CHEST,SINGLE VIEW, HISTORY: CP COMPARISON: DI CHEST,TWO VIEWS on DOS: 10/27/24, CHEST,SINGLE VIEW on DOS: 08/07/22, CT CHEST on DOS: 03/27/22 DI CHEST,TWO VIEWS on DOS: 10/27/24, CHEST,SINGLE VIEW on DOS: 08/07/22, CT CHEST on DOS: 03/27/22 TECHNICAL DATA: 1 view of the chest was obtained. FINDINGS: Lines and tubes: None Cardiomediastinal silhouette: normal Pulmonary vasculature: prominent Lung expansion: normal Lung airspace: normal Lung interstitium: normal Pleura: normal Pneumothorax: no Bones: Unremarkable Other: no IMPRESSION: Mild pulmonary vascular congestion.
[2024-11-28 09:39] LABS: CREATININE 0.71 MG/DL (0.40-0.90); PRO BRAIN NATRIURETIC PEPTIDE < 30 PG/ML (0-450); TOTAL CARBON DIOXIDE 28.6 MMOL/L (24-32); eCRCL 47 ML/MIN; eGFR 79 ML/MIN
[2024-11-28] MEDS ORDERED: LOSA50TA64 PO (11:12)
[2024-11-28] MEDS ORDERED: CEPH-585 PO (11:12)
--- NOTE | 2024-11-28 11:24 | VASCULAR REPORT ---
VASC VL VENOUS HISTORY: COMPARISON: VASC VL VENOUS on DOS: 03/20/24, VL VENOUS on DOS: 08/07/22, VL VENOUS on DOS: 08/07/20 TECHNIQUE: Duplex doppler evaluation of the deep venous system of the lower extremity from the common femoral veins, superficial femoral vein, great saphenous vein, deep femoral vein, popliteal vein, and calf veins, including color doppler and spectral/pulsed waveform analysis, was performed. FINDINGS: Right: - Common femoral vein: Compressible - Deep femoral vein: Compressible - Femoral vein: Compressible - Popliteal vein: Compressible - Posterior tibial vein: Waveforms present - Peroneal vein: Waveforms present - Other: Nothing Left: - Common femoral vein: Compressible - Other: Nothing IMPRESSION: No right lower extremity deep venous thrombosis.
[2024-11-28 11:53] VITALS: BP 159/86; PULSE 94; RESP 19; TEMP 97.9; O2SAT 95
== END 2024-11-28 11:59 | disposition home or self-care (01) ==
LOC: ER 08:26
DX: L03.115 Cellulitis of right lower limb (principal); R60.0 Localized edema; I11.0 Hypertensive heart disease with heart failure; I50.9 Heart failure, unspecified; I48.91 Unspecified atrial fibrillation; E78.00 Pure hypercholesterolemia, unspecified; Z79.01 Long term (current) use of anticoagulants; M19.90 Unspecified osteoarthritis, unspecified site; J44.9 Chronic obstructive pulmonary disease, unspecified; K21.9 Gastro-esophageal reflux disease without esophagitis; Z86.718 Personal history of other venous thrombosis and embolism; Z85.3 Personal history of malignant neoplasm of breast; Z86.73 Personal history of transient ischemic attack (TIA), and cerebral infarction without residual deficits; Z87.11 Personal history of peptic ulcer disease; Z87.01 Personal history of pneumonia (recurrent); Z79.899 Other long term (current) drug therapy; Z95.0 Presence of cardiac pacemaker; Z91.041 Radiographic dye allergy status; Z88.5 Allergy status to narcotic agent; Z88.2 Allergy status to sulfonamides; Z88.1 Allergy status to other antibiotic agents; Z88.0 Allergy status to penicillin; Z88.8 Allergy status to other drugs, medicaments and biological substances; Z91.018 Allergy to other foods; Z79.82 Long term (current) use of aspirin; Z98.890 Other specified postprocedural states
CPT/HCPCS: 36415; 71045; 80048; 83880; 84484; 85025; 85379; 93005; 93971; 99285